=== PATIENT | female | born 1955 | race Caucasian/White ===

== ENCOUNTER → 2020-08-13 09:50 | Outpatient (CLI) | payer BC, SELFPAY ==
--- NOTE | ~2020-08-13 | CT_ITS ---
EXAMINATION: CT lung screening EXAM DATE: 08/13/2020 10:15 INDICATION: Personal history of nicotine dependence. TECHNIQUE: Spiral low dose CT of the chest without contrast. Axial, coronal and sagittal images were reviewed. The dose-length product (DLP) for this examination was 73.80 mGy-cm. The exposure was ta ilored according to patient size (auto mA exposure control), and iterative reconstruction (ASIR) was used as additional dose reduction technique. There is no prior study for comparison. FINDINGS: The lungs are clear. Tracheobronchial tree is patent. There is no mediastinal, hilar o r axillary lymphadenopathy. There are no pleural or pericardial effusions. There is no pneumothor ax. Heart normal in size. There is mild to moderate coronary arterial calcification, arterial scl erosis. Upper abdomen is unremarkable. There is thoracic spondylosis without osteoblastic or osteol ytic lesions identified. IMPRESSION: Lung-RADS category 1, negative (<1%chance of malignancy); recommend continued LDCT screen ing in 1 year. Reviewed, dictated and finalized at location A. IER AND WAITER/WAITRESS IMPRESSION: Lung-RADS category 1, negative (<1%chance of malignancy); recommend continued LDCT screening in 1 year.
== END ==
PROVIDERS: PCP Family Medicine; Visit Provider Physician Assistant
DX: Z87.891 Personal history of nicotine dependence (principal)
CPT/HCPCS: G0297

== ENCOUNTER → 2021-01-13 07:09 | Outpatient (CLI) | payer BC, MEDICARE, SELFPAY ==
[2021-01-14 17:42] LABS: SARS-CoV-2 RNA PCR Negative
== END ==
PROVIDERS: PCP Physician Assistant; Visit Provider Physician Assistant
DX: R68.89 Other general symptoms and signs (principal); Z20.822 Contact with and (suspected) exposure to COVID-19
CPT/HCPCS: C9803; U0003; U0005

== ENCOUNTER → 2021-01-18 06:44 | Outpatient (CLI) | payer BC, MEDICARE, SELFPAY ==
[2021-01-18 19:04] LABS: SARS-CoV-2 RNA PCR Negative
== END ==
PROVIDERS: PCP Physician Assistant; Visit Provider Physician Assistant
DX: R68.89 Other general symptoms and signs (principal); Z20.822 Contact with and (suspected) exposure to COVID-19
CPT/HCPCS: C9803; U0003; U0005

== ENCOUNTER → 2021-06-19 00:25 | Outpatient (CLI) | payer BC, SELFPAY ==
[2021-06-19 18:09] LABS: SARS-CoV-2 RNA PCR Negative
== END ==
PROVIDERS: PCP Family Medicine; Visit Provider Family Medicine
DX: Z20.822 Contact with and (suspected) exposure to COVID-19 (principal)
CPT/HCPCS: C9803; U0003; U0005

== ENCOUNTER → 2021-09-07 08:57 | Outpatient (CLI) | payer BC, SELFPAY ==
[2021-09-07 20:28] LABS: SARS-CoV-2 RNA PCR Negative
== END ==
PROVIDERS: PCP Family Medicine; Visit Provider Physician Assistant
DX: R68.89 Other general symptoms and signs (principal); Z20.822 Contact with and (suspected) exposure to COVID-19
CPT/HCPCS: C9803; U0003; U0005

== ENCOUNTER → 2021-11-19 12:20 | Outpatient (CLI) | payer BC, SELFPAY ==
--- NOTE | ~2021-11-19 | XR_ITS ---
XR lumbar spine min 4V DATE: 11/19/2021 12:46 INDICATION: Low back pain TECHNIQUE: AP, lateral, bilateral oblique views and coned lateral lumbosacral view COMPARISON: 08/16/2011 lumbar spine FINDINGS: There is diffuse osteopenia. There is approximately 24 degrees rotatory moderate levoscoliosis of the lower thoracic and lumbar sp ine measured from T12 to L4. There is prominent multilevel degenerative disc disease. There is associated retrolisthesis at L3-4. There is prominent degenerative change at the apophyseal joints particularly in the lower lumbar and lumbosacral area but no anterolisthesis. The sacroiliac joints are intact. IMPRESSION: Rotatory levoscoliosis of the lumbar spine Multilevel degenerative disc disease with associated retrolisthesis at L3-4 Degenerative change at the facet joints Osteopenia Reviewed, dictated and finalized at location B. CIATE PROFESSOR OF THEATRE
== END ==
PROVIDERS: PCP Physician Assistant; Visit Provider Physician Assistant
DX: M54.50 Low back pain, unspecified (principal); M41.86 Other forms of scoliosis, lumbar region; M51.36 Other intervertebral disc degeneration, lumbar region; M43.16 Spondylolisthesis, lumbar region; M85.88 Other specified disorders of bone density and structure, other site
CPT/HCPCS: 72110

== ENCOUNTER 2021-11-29 11:18 | Emergency (ER) | payer BC, SELFPAY ==
--- NOTE | ~2021-11-29 | CT_ITS ---
EXAMINATION: CT lumbar spine wo con DATE: 11/29/2021 13:04 INDICATION: Low back pain. TECHNIQUE: Computed tomography (CT) of the lumbar spine was performed without intravenous contrast. A utomated exposure control and iterative reconstruction technique were employed. The dose-length produ ct was 923.68 mGy-cm. COMPARISON: Lumbar spine radiographs 11/19/21 FINDINGS: There is 23 degrees levoscoliosis of thoracolumbar spine. There is 3 mm anterolisthesis of L4 on L5. There is mild chronic anterior wedging of L1 and L2 vertebral bodies. There is severely dec reased disc height at T12-L1, moderately decreased disc height at L1-L2, severely decreased disc heig ht at L2-L3, moderately decreased disc height at L3-L4, and severely decreased disc height at L4-L5 a nd L5-S1 with endplate remodeling. The following disc levels are specifically discussed: L1-L2: The disc does not extend beyond the endplate margin. There is mild bilateral facet joint osteo arthritis. There is no neural foraminal stenosis. There is no central canal stenosis. L2-L3: The disc is bulging. There is severe right and moderate left facet joint osteoarthritis. There is moderate right and mild left neural foraminal stenosis. There is mild central canal stenosis. L3-L4: The disc is bulging. There is severe bilateral facet joint osteoarthritis. There is mild bilat eral neural foraminal stenosis. There is mild central canal stenosis. L4-L5: The disc is bulging. There is severe bilateral facet joint osteoarthritis. There is mild right and moderate left neural foraminal stenosis. There is mild central canal stenosis. L5-S1: The disc is bulging. There is severe bilateral facet joint osteoarthritis. There is moderate b ilateral neural foraminal stenosis. There is mild central canal stenosis. IMPRESSION: 1. Severe lumbar spondylosis. 2. Thoracolumbar levoscoliosis. Reviewed, dictated and finalized at location A. ATIONS RESEARCH SCIENTIST
[2021-11-29 11:25] VITALS: BP 146/82; RESP 102; TEMP 36.6; O2SAT 100
--- NOTE | 2021-11-29 12:44 | ED.BACK ---
HPI - Back Pain/Injury General Chief Complaint: Back Pain/Injury Stated Complaint: back pain Time Seen by Provider: 11/29/21 12:27 History of Present Illness HPI Narrative: 66-year-old female presents to the emergency room with chronic back pain for 4 weeks. Patient states she has been evaluated by her PCP, was given an 8-day course of prednisone, and tramadol. Denies saddle anesthesia. Denies difficulties or loss of bowel or bladder habits. Related Data Home Medications Medication Instructions Recorded Confirmed ibuprofen 200 mg tablet 200 mg PO Q6H PRN 08/23/19 11/16/21 Allergies Allergy/AdvReac Type Severity Reaction Status Date / Time alprazolam Allergy Severe Stopped Verified 11/16/21 09:58 Breathing Review of Systems Review of Systems: CONSTITUTIONAL: Denies fever, chills, or sweats. EYES: Denies visual changes, redness, or discharge. ENT: Denies rhinorrhea, congestion, sore throat, or otalgia. CARDIOVASCULAR: Denies chest pain, palpitations, or edema. RESPIRATORY: Denies cough or dyspnea. GASTROINTESTINAL: Denies abdominal pain, nausea, vomiting, or diarrhea. GENITOURINARY: Denies dysuria or hematuria. SKIN: Denies rash or itching. MUSCULOSKELETAL: Reports back pain, joint pain, or myalgia. NEUROLOGIC: Denies headache, numbness, dizziness, or weakness. Denies radiculopathy or paresthesias PSYCHIATRIC: Denies anxiety or depression. [facility] Past Medical History Medical History (Updated 11/29/21 @ 14:00 by Nico Osborne APRN) Adenomatous colon polyp Hammertoe Hemorrhoids with prolapsed tissue that cannot be manually replaced Surgical History Surgical History H/O: hysterectomy History of bunionectomy Family History Family History Mother Diabetes mellitus Other Family history of coronary artery disease Family history of malignant neoplasm of breast in first degree relative Social History Social History Smoking status: Current every day smoker Alcohol intake: current Drinks per week: 1 Substance use: current Substance use type: marijuana Other substance usage details: smokes marijuana, edibles-seldom, maybe once every 2 weeks. Exam Narrative: GENERAL: Well-appearing, well-nourished. HEAD: Normocephalic, atraumatic. EYES: PERRLA and EOMI. ENT: Nares clear, no rhinorrhea or epistaxis. Mucous membranes moist. Oropharynx without tonsillar hypertrophy exudate or other lesions. Bilateral TMs pearly weems nonbulging NECK: Supple. No adenopathy or masses. No carotid bruits or JVD CHEST: Clear to auscultation. No respiratory distress. No wheezes rales or rhonchi HEART: Regular rate and rhythm. No murmur heard. Normal peripheral pulses. ABDOMEN: Soft, nontender, nondistended, normal active bowel sounds. EXTREMITIES: Normal range of motion. No edema. Lumbar spine: No tenderness to palpation, no midline tenderness, no step-offs. Negative leg raise SKIN: Warm, dry, no rash. NEURO: No focal deficits. Alert and oriented x3. PSYCH: Normal mood and affect. Course Course Emergency Course: Patient given 10 mg of IV Decadron 4 mg of Zofran and 4 mg of morphine for back pain. Patient's pain level went from a 10 out of 10 to a 4 out of 10. Vital Signs Vital signs: Vital Signs Temperature 36.6 C 11/29/21 11:25 Respiratory Rate 102 H 11/29/21 11:25 Blood Pressure 146/82 H 11/29/21 11:25 Pulse Oximetry 100 11/29/21 11:25 Temperature 36.6 C 11/29/21 11:25 Respiratory Rate 102 H 11/29/21 11:25 Blood Pressure 146/82 H 11/29/21 11:25 Pulse Oximetry 100 11/29/21 11:25 MDM - Back Pain/Injury MDM Narrative Medical decision making narrative: 66-year-old female presented to emergency room with 4 weeks of low back pain that radiates into her right buttock. States she had plain films performed of her l
[2021-11-29] MEDS: ONDANSETRON INJ 4 MG/2 ML VIAL IV PUSH (13:15)
[2021-11-29] MEDS: MORPHINE SULFATE (*CRX) 4 MG/ML INJ IV PUSH (13:15)
[2021-11-29 14:11] VITALS: BP 143/80; PULSE 88; RESP 16; TEMP 36.1; O2SAT 97
== END 2021-11-29 14:10 | disposition home or self-care (01) ==
PROVIDERS: Emergency Provider Nurse Practitioner Family; PCP Family Medicine
DX: M54.41 Lumbago with sciatica, right side (principal); Z86.010 Personal history of colon polyps; F17.200 Nicotine dependence, unspecified, uncomplicated; M47.816 Spondylosis without myelopathy or radiculopathy, lumbar region
CPT/HCPCS: 72131; 96374; 96375; 99284; J1100; J2270; J2405

== ENCOUNTER 2022-07-07 08:00 | Outpatient (NON) | payer BC, SELFPAY | END 2022-07-07 08:01 | disposition home or self-care (01) | LOC: ANHLAB 07-11 13:04 | PROVIDERS: PCP Family Medicine; Visit Provider Nurse Practitioner | DX: L57.0 Actinic keratosis (principal); L81.4 Other melanin hyperpigmentation | CPT/HCPCS: 88305; 88342 ==

== ENCOUNTER 2022-09-21 13:16 | Outpatient (NON) | payer BC, SELFPAY | END 2022-09-21 13:17 | disposition home or self-care (01) | LOC: ANHLAB 13:17 | PROVIDERS: PCP Family Medicine; Visit Provider Surgery Plastic and Reconstructive Surgery | DX: D49.2 Neoplasm of unspecified behavior of bone, soft tissue, and skin (principal) | CPT/HCPCS: 88305 ==

== ENCOUNTER 2023-03-01 08:13 | Emergency (ER) | payer OTHER, SELFPAY ==
--- NOTE | ~2023-03-01 | CT_ITS ---
EXAMINATION: CT lumbar spine wo con DATE: 03/01/2023 09:50 INDICATION: Sacral pain. TECHNIQUE: Computed tomography (CT) of the lumbar spine was performed without intravenous contrast. A utomated exposure control and iterative reconstruction technique were employed. The dose-length produ ct was 577.74 mGy-cm. 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 The inferior aspect of the sacrum is excluded. There is mild osteoarthritis of the sacroiliac joints. There is 25 degrees levoscoliosi s of lumbar spine. There is a chronic compression fracture of L2 with 1/5 loss of height. There is 3 mm anterolisthesis of L4 on L5. There is moderately decreased disc height at L1-L2, severely decrease d disc height at L2-L3, mildly decreased disc height at L3-L4, severely decreased disc height at L4-L 5 and L5-S1. The following disc levels are specifically discussed: L1-L2: The disc is bulging. There is mild bilateral facet joint osteoarthritis. There is mild bilater al neural foraminal stenosis. There is mild central canal stenosis. L2-L3: The disc is bulging. There is severe right and moderate left facet joint osteoarthritis. There is moderate right and mild left neural foraminal stenosis. There is mild central canal stenosis. L3-L4: The disc is bulging. There is severe bilateral facet joint osteoarthritis. There is mild bilat eral neural foraminal stenosis. There is mild central canal stenosis. L4-L5: The disc is bulging. There is severe bilateral facet joint osteoarthritis. There is mild bilat eral neural foraminal stenosis. There is mild central canal stenosis. L5-S1: The disc is bulging. There is severe bilateral facet joint osteoarthritis. There is mild bilat eral neural foraminal stenosis. There is mild central canal stenosis. IMPRESSION: 1. Severe lumbar spondylosis. 2. Lumbar levoscoliosis. 3. Mild osteoarthritis of the sacroiliac joints. 4. The inferior aspect of the sacrum is excluded. Reviewed, dictated and finalized at location A.
--- NOTE | ~2023-03-01 | XR_ITS ---
EXAMINATION: XR hip RT min 2V DATE: 03/01/2023 09:55 INDICATION: Lateral right hip pain TECHNIQUE: Anteroposterior and frog-leg lateral views of the right hip were obtained. COMPARISON: None. FINDINGS: Alignment is normal. No fracture or suspected avascular necrosis. Right hip osteoarthritis with mild to moderate superomedial predominant nonuniform joint space narrowing. Mild osteoarthritis at the rig ht sacroiliac joint. Couple phleboliths in the pelvis. IMPRESSION: 1. Mild to moderate right hip osteoarthritis. Reviewed, dictated and finalized at location B.
[2023-03-01 08:17] VITALS: BP 144/86; PULSE 82; RESP 16; TEMP 36.2; O2SAT 97
--- NOTE | 2023-03-01 09:35 | ED.EXTPRO ---
HPI - Extremity Problem General Chief complaint: Extremity Problem,Nontraumatic Stated complaint: right hip pain Time Seen by Provider: 03/01/23 08:54 Source: patient Mode of arrival: ambulatory Limitations: no limitations History of Present Illness HPI Narrative: This is a 67-year-old female who presents to the ED with chief complaint of acute on chronic right hip pain. Patient states that it has been more bothersome in the last 3 days and she wants to have the pain under control by Monday. She states she has not been able to get into her pain management clinic until next week. She reports right lateral hip pain and SI joint pain. Also endorses a little bit of sacral pain. Denies radiculopathy. Denies fevers, chills, numbness, weakness, saddle anesthesia, urinary or bowel dysfunction. Related Data Allergies Allergy/AdvReac Type Severity Reaction Status Date / Time alprazolam Allergy Severe Stopped Verified 03/01/23 08:24 Breathing Review of Systems Review of Systems: CONSTITUTIONAL: Denies fever, chills, or sweats. EYES: Denies visual changes, redness, or discharge. ENT: Denies rhinorrhea, congestion, sore throat, or otalgia. CARDIOVASCULAR: Denies chest pain, palpitations, or edema. RESPIRATORY: Denies cough or dyspnea. GASTROINTESTINAL: Denies abdominal pain, nausea, vomiting, or diarrhea. GENITOURINARY: Denies dysuria or hematuria. SKIN: Denies rash or itching. MUSCULOSKELETAL: See HPI NEUROLOGIC: Denies headache, numbness, dizziness, or weakness. PSYCHIATRIC: Denies anxiety or depression. [facility] Past Medical History Medical History (Updated 03/01/23 @ 10:29 by Juanito Dennis PA-C) Adenomatous colon polyp Hammertoe Hemorrhoids with prolapsed tissue that cannot be manually replaced Surgical History Surgical History H/O: hysterectomy History of bunionectomy Family History Family History Mother Diabetes mellitus Other Family history of coronary artery disease Family history of malignant neoplasm of breast in first degree relative Social History Social History (Updated 09/06/22 @ 09:00 by Mel العراقي CMA) Smoking status: Current every day smoker Tobacco type: cigarettes Second hand tobacco smoke exposure: No Alcohol intake: current Drinks per week: 1 Substance use: current Substance use type: marijuana Other substance usage details: smokes marijuana, edibles-seldom, maybe once every 2 weeks. Lack of Transportation: No Lack of Food: Never True Current Housing: I Have Housing Concerned About Future Housing: No Difficulty Paying Gas/Electric Bills: No Difficulty Paying for Meds: No Currently Unemployed: No Education: Trade/Vocational Certificate Difficulty w/ Childcare or Family Care: No Living arrangements: with family Gender identity (if verbalized by the patient): Female Sexual Orientation (if Verbalized by the Patient): Straight or Heterosexual Spiritual care concerns: No Agree to blood products: Yes Exam Narrative: GENERAL: Well-appearing, well-nourished, and in no acute distress. HEAD: Normocephalic, atraumatic. EYES: PERRLA and EOMI. ENT: Nares clear, no rhinorrhea or epistaxis. Mucous membranes moist. Oropharynx without tonsillar hypertrophy exudate or other lesions. NECK: Supple. No adenopathy or masses. CHEST: No respiratory distress. Clear to auscultation. No wheezes rales or rhonchi HEART: Regular rate and rhythm. No murmur heard. Normal peripheral pulses. ABDOMEN: Soft, nontender, nondistended, normal active bowel sounds. MSK: Right hip: Full active and passive range of motion of the right hip. Mild lateral tenderness and right SI joint tenderness is present. Negative logroll. Left hip: Benign. L-spine: Mild right sacral tenderness. MSK exam is otherwise benign. She is ambulatory. Normal range of motion. N
[2023-03-01] MEDS: KETOROLAC 30 MG/ML VIAL (*BKC) IM (09:40)
[2023-03-01 10:42] VITALS: BP 138/71; PULSE 72; RESP 16; O2SAT 97
== END 2023-03-01 10:42 | disposition home or self-care (01) ==
PROVIDERS: Emergency Provider Physician Assistant; PCP Family Medicine
DX: M25.551 Pain in right hip (principal); G89.29 Other chronic pain; M47.816 Spondylosis without myelopathy or radiculopathy, lumbar region; M16.11 Unilateral primary osteoarthritis, right hip; F17.210 Nicotine dependence, cigarettes, uncomplicated; Z86.010 Personal history of colon polyps; Z90.710 Acquired absence of both cervix and uterus; M46.1 Sacroiliitis, not elsewhere classified
CPT/HCPCS: 72131; 73502; 96372; 99284; J1885

== ENCOUNTER 2023-07-31 12:59 | Outpatient (NON) | payer OTHER, SELFPAY | END 2023-07-31 13:00 | disposition home or self-care (01) | LOC: ANHLAB 08-02 13:02 | PROVIDERS: PCP Family Medicine; Visit Provider Nurse Practitioner | DX: C44.311 Basal cell carcinoma of skin of nose (principal) | CPT/HCPCS: 88305 ==

== ENCOUNTER 2023-09-11 15:09 | Outpatient (NON) | payer OTHER, SELFPAY | END 2023-09-11 15:10 | disposition home or self-care (01) | LOC: ANHLAB 15:09 | PROVIDERS: PCP Family Medicine; Visit Provider Nurse Practitioner | DX: C44.311 Basal cell carcinoma of skin of nose (principal) | CPT/HCPCS: 88305; 88331 ==

== ENCOUNTER 2024-04-17 06:35 | Outpatient (CLI) | payer OTHER, SELFPAY ==
--- NOTE | ~2024-04-17 | MR_ITS ---
MRI of the lumbar spine Clinical History: Back pain Technique: Axial T2-weighted images, and sagittal T1-weighted, T2-weighted, and T2 fat-sat images wer e acquired. Findings: There is no fracture or subluxation of the lumbar spine. There is levoscoliosis. No suspici ous bone marrow signal abnormality seen. There is a 1 Modic changes about the L1-L2 and L2-L3 disc sp aces. At L1-L2, there is severe degenerative narrowing. There is mild diffuse disc bulge and moderate facet arthropathy. No central canal stenosis. There is moderate right neural foraminal narrowing. Left karolina ral foramen preserved. At L2-L3, there is severe degenerative disc narrowing. There is mild diffuse disc bulge with moderate facet arthropathy. No central canal stenosis. There is probable mild right neural foraminal narrowin g. Left neural foramen preserved. At L3-L4, there is moderate degenerative disc narrowing. There is diffuse disc bulge with severe face t arthropathy. There is mild central canal stenosis. There is mild to moderate right neural foraminal narrowing and minimal left neural foraminal narrowing. At L4-L5, there is mild degenerative disc disease. There is diffuse disc bulge with severe facet arth ropathy, resulting in moderate spinal canal stenosis/thecal sac compression. There is moderate to adv anced left neural foraminal narrowing. Right neural foramen preserved. At L5-S1, there is mild disc bulge and moderate facet arthropathy. No central canal stenosis. There i s moderate right neural foraminal narrowing, and moderate to severe left neural foraminal narrowing. Paravertebral soft tissues are unremarkable. Impression: Moderate to advanced degenerative spondylosis, as detailed above, with underlying levoscoliosis. Reviewed, dictated and finalized at [facility] M. Impression: Moderate to advanced degenerative spondylosis, as detailed above, with underlyi ng levoscoliosis.
== END 2024-04-17 06:36 | disposition home or self-care (01) ==
PROVIDERS: PCP Family Medicine; Visit Provider Nurse Practitioner Family
DX: M47.896 Other spondylosis, lumbar region (principal)
CPT/HCPCS: 72148

== ENCOUNTER 2024-04-25 12:45 | Outpatient (CLI) | payer OTHER, SELFPAY ==
--- NOTE | 2024-04-25 12:53 | ECG_ITS ---
Test Date: 2024-04-25 13:01:08 Measurements Intervals [place] Rate: 77 P: 49 FL: 163 QRS: -23 QRSD: 97 T: 40 QT: 389 QTc: 443 Interpretive Statements SINUS RHYTHM DELAYED PRECORDIAL R/S TRANSITION CONSIDER INFERIOR INFARCT, AGE INDETERMINATE BASELINE ARTIFACT- II, III, AVR, AVL, AVF ABNORMAL ECG No previous ECG available for comparison Electronically Signed On 04-25-2024 13:15:00 CDT by True Villarreal D.O.
== END 2024-04-25 12:46 | disposition home or self-care (01) ==
LOC: ANHSURGERY 12:51
PROVIDERS: PCP Family Medicine; Visit Provider Surgery
DX: E78.2 Mixed hyperlipidemia (principal); Z01.818 Encounter for other preprocedural examination; R94.31 Abnormal electrocardiogram [ECG] [EKG]
CPT/HCPCS: 93005

== ENCOUNTER 2024-04-29 01:10 | Day surgery (SDC) | payer OTHER, SELFPAY ==
[2024-04-25 08:15] VITALS: BMI 25.0
--- NOTE | 2024-04-25 08:48 | PC.NURSE ---
Report to the Outpatient Waiting Room, entrance under the green pavilion located off [facility], at time ___11:00AM____ on date ___04/29/24____. Planned Procedure Time: __1:00PM . Time changes happen often and if your time is changed the preop area will call you the afternoon before. - You and your visitor will be asked to self-screen and do not enter if you have any COVID symptoms. - A mask is optional within the hospital at this time. Patients may have clear liquids (water, carbonated beverages, clear teas, apple juice) until 3 hours prior to surgery with a maximum of 20 ounces. - No food from midnight until time of surgery. Take the following medications with a SIP of water the morning of surgery: ___NONE DO NOT STOP ANY OF YOUR OTHER PRESCRIPTION MEDICATIONS PRIOR TO SURGERY ?EXCEPT THE FOLLOWING Medications to discontinue per physician NONE Date to take last dose Please no make-up, nail bulgarian, hairspray, perfume, deodorant, or body powder the day of surgery. No jewelry (including any body piercings) or valuables the day of surgery, leave them at home. Please take a shower or bath the night before, or the morning of, surgery with an antibacterial soap. Wear comfortable, loose fitting clothing. - Jewelry must be removed prior to entering the operating room. Rings and piercings that are not removed may be cut off. - The hospital will not accept responsibility for valuables. - Please leave all valuables, including medications, at home the day of surgery. If you are going home after surgery, a licensed regional driver must drive you home. - NO public transportation without another adult if you receive anesthesia. - We recommend that an adult stay with you for 24 hours following discharge. - We also recommend that you do not drive, make important decision, drink alcoholic beverages, or take any drugs that were not prescribed by your health care provider for at least 24 hours after your discharge time. Follow any additional instructions given to you from your surgeon. If you or anyone in your household have experienced Covid symptoms in the past week, please notify your surgeon or the nurse liaison at the phone number below for possible testing. Telephone instructions given to ___PATIENT and asked if any additional questions and then verbalized understanding. Patient advised to call surgeon office or pre surgery nurse liaison [phone] if any additional questions.
[2024-04-29] VITALS (8 sets, daily range): BP systolic 122–167; BP diastolic 76–89; PULSE 69–92; RESP 11–16; TEMP 36.3–36.8; O2SAT 97–100
[2024-04-29] MEDS: ACETAMINOPHEN 500 MG TABLET 1000 MG PO (11:22)
[2024-04-29] MEDS: KETOROLAC 15 MG/ML VIAL (*BKC) IV PUSH ×2 (11:29→15:17)
--- NOTE | 2024-04-29 11:50 | WPDANESEPPF ---
Anes - Initial Pre Proc Eval Procedure: Operation Date: 04/29/24 13:00 Proposed Procedures p Internal and External Hemorrhoidectomy Times Two Columns - Karl Stewart DO Date/Time: 04/29/24 11:50 Surgeon: Karl Stewart DO Pre Op Diagnosis: Internal & External Bleeding Hemorrhoid Patient Data Age: 68 Gender: F Height: 1.55 m Weight: 58.8 kg Last Vital Signs Temp 98.3 F 04/29/24 11:00 Pulse 92 04/29/24 11:00 Resp 16 04/29/24 11:00 BP 122/81 04/29/24 11:00 Pulse Ox 98 04/29/24 11:00 O2 Del Method Room Air 04/29/24 11:00 Allergies Allergy/AdvReac Type Severity Reaction Status Date / Time alprazolam AdvReac Intermediate shortness Verified 04/29/24 11:20 of breath Home Medications Medication Instructions Recorded Confirmed Type atorvastatin 10 mg tablet See Rx Instructions .Route 06/15/23 04/29/24 Rx .COMPLEX #90 tabs naproxen 500 mg tablet 500 mg PO BID PRN pain #60 tabs 08/09/23 04/25/24 Rx valacyclovir 1 gram tablet 2,000 mg PO Q12H PRN cold sores 08/11/23 04/25/24 Rx (Valtrex) #30 tabs varenicline 0.5 mg (11)-1 mg (42) See Rx Instructions PO PER PKG DIR 01/31/24 04/25/24 Rx tablets in a dose pack #53 ea ondansetron HCl 4 mg tablet 4 mg PO Q8H PRN nausea and 04/17/24 04/25/24 Rx vomiting #30 tabs Patient hx anesthesia problems: none Family hx anesthesia problems: none Results Review: All pre-operative results and documents have been reviewed as part of the pre-operative evaluation. [facility] Past Medical History Medical History (Updated 04/08/24 @ 15:02 by Mariluz Harris) Adenomatous colon polyp Hammertoe Hemorrhoids with prolapsed tissue that cannot be manually replaced Surgical History Surgical History H/O: hysterectomy History of bunionectomy Family History Family History Mother Diabetes mellitus Other Family history of coronary artery disease Family history of malignant neoplasm of breast in first degree relative Social History Social History Smoking packs per day: 1 Smoking cigarettes per day: 20.0 Years smoked: 50 Smoking pack-years: 50.00 Smoking status: Current every day smoker Tobacco type: cigarettes Second hand tobacco smoke exposure: No Additional smoking assessment comments: TRYING TO QUIT-SMOKING 4-5/DAY Alcohol intake: current Drinks per week: 8 Alcohol use details: 3 beers, twice weekly Substance use: current Substance use type: marijuana Other substance usage details: smokes marijuana, edibles-seldom, maybe once every 2 weeks. Lack of Transportation: No Lack of Food: Never True Current Housing: I Have Housing Concerned About Future Housing: No Difficulty Paying Gas/Electric Bills: No Difficulty Paying for Meds: No Currently Unemployed: No Education: Trade/Vocational Certificate Difficulty w/ Childcare or Family Care: No Living arrangements: with family Additional living arrangements comments: HUSB Gender identity (if verbalized by the patient): Female Sexual Orientation (if Verbalized by the Patient): Straight or Heterosexual Spiritual care concerns: No Agree to blood products: Yes Anes - Eval Final PreProcedure Day of Procedure 04/29/24 11:50 Patient weight: normal Heart: regular rate and rhythm Lungs: clear to auscultation Airway: Mallampati scale class II Neurological: alert and oriented Last oral intake: >/= 8 hours ASA classification: III Emergent: no Anesthetic plan: proceed Anesthesia type and monitoring: general ETT and standard monitoring Results Review: All pre-operative results and documents have been reviewed as part of the pre-operative evaluation. Informed Consent: The patient's anesthetic plan and its attendant risks and benefits were discussed with the shayy
[2024-04-29] MEDS: LACTATED RINGERS 1,000 ML 30 ML IV CONT ×2 (12:02→15:21)
--- NOTE | 2024-04-29 13:38 | WPDHPUPDATE1 ---
History and Physical Update Update Date/Time: 04/29/24 13:38 History and Physical has been reviewed, including an updated exam of the patient. There are NO changes in the patient's condition. Risks, benefits, and alternatives have been discussed and questions answered. Patient agrees to proceed with procedure.
[2024-04-29] MEDS: ceFAZolin 2 GM/D5W 50 ML 2 GM/50 ML BAG IVPB (14:02)
[2024-04-29] MEDS: BUPivacaine HCL 0.5% PF 30 ML VIAL INFILTRATE (14:25)
--- NOTE | 2024-04-29 15:02 | W.PM.PROC2 ---
Procedure Note - Detailed Date of Procedure 04/29/24 Pre-op Diagnosis Internal & External Bleeding Hemorrhoid Post-op Diagnosis Same Procedure Performed Internal and external hemorrhoidectomy x2 columns Surgeon Karl Stewart, DO Anesthesia General and Local (0.5% bupivacaine with epinephrine) Indications This is a 68-year-old woman who presented with prolapsing and bleeding internal and external hemorrhoids. She had tried infrared coagulation in the past without much benefit. Discussions were made with the patient about lifestyle and diet modifications to help with symptoms as well as less invasive procedures such as hemorrhoid banding verses more invasive procedures such as excision. Patient chose to proceed with excision. I recommended internal and external hemorrhoidectomy x2 columns. Findings Rectal exam under anesthesia was performed and patient was found to have external hemorrhoid tissue along with prolapsing internal hemorrhoid tissue predominantly in the right anterior and right posterior locations. The left side did not appear to have any major issues with internal or external hemorrhoids, therefore the left side was left wound. Internal and external hemorrhoidectomy was performed in the right anterior right posterior locations. The specimens were sent to the lab for pathology. Description of Procedure Procedure as well as risks, benefits, and alternatives were discussed with the patient. Written consent was obtained and placed in chart prior to procedure. Patient was brought back to surgical suite. She was placed supine on his hospital stretcher. Time-out was done to confirm patient and procedure. She was then intubated by the Anesthesia Department. She was then repositioned into prone narayan-knife position. Her perirectal area was prepped and draped in sterile fashion using Betadine prep. Digital rectal exam was initially performed. A Hill-Grigsby anoscope was then inserted and the anal rectal canal was inspected. 0.5% bupivacaine with epinephrine was infiltrated locally around the perianal skin. Hemorrhoids were identified in the right anterior and right posterior positions. A Fansler anoscope was then inserted. The apex of the internal hemorrhoid bundle in the right posterior location was ligated initially using a 2 0 chromic oicyow-rw-tcohg suture. A triangular incision was then made on the anoderm including the external hemorrhoid using a 15 blade scalpel. The hemorrhoid tissue was carefully lifted free from the sphincter muscle using sharp dissection with a 15 blade scalpel. Electrocautery was then used for hemostasis. A curved Peon clamp was then placed across the hemorrhoid bundle and the hemorrhoid tissue was cut away using Metzenbaum scissors. The 2 0 chromic suture was then run across the rectal mucosa down to the anal verge across the clamp. The suture was then run back proximally to the apex stitch with running locking sutures and the stitch was then tied down in place. The area was then irrigated with sterile saline, and hemostasis along the anoderm was achieved with electrocautery. The anoderm was then reapproximated using 3 0 chromic simple interrupted sutures. I then repositioned the anoscope to the right anterior location. The apex of the internal hemorrhoid bundle in the right anterior location was ligated initially using a 2 0 chromic guxsaw-bv-eeluo suture. A triangular incision was then made on the anoderm including the external hemorrhoid using a 15 blade scalpel. The hemorrhoid tissue was carefully lifted free from the sphincter muscle using sharp dissection with a 15 blade scalpel. Electrocautery was then used for hemostasis. A curved Peon clamp was then placed across the hemorrhoid bundle and the hemorrhoid tissue was cut away using Metzenbaum scissors. The 2 0 chromic suture was then run across the rectal mucosa down to the anal verge across the clamp. The suture was then run back proximally to the
== END 2024-04-29 17:10 | disposition home or self-care (01) ==
PROVIDERS: PCP Family Medicine; Visit Provider Surgery
PROC: (CPT 46260; principal; 2024-04-29 13:00)
DX: K64.4 Residual hemorrhoidal skin tags (principal); K64.8 Other hemorrhoids; F17.290 Nicotine dependence, other tobacco product, uncomplicated; F12.90 Cannabis use, unspecified, uncomplicated; Z98.890 Other specified postprocedural states; Z86.010 Personal history of colon polyps; Z80.3 Family history of malignant neoplasm of breast; Z82.49 Family history of ischemic heart disease and other diseases of the circulatory system
CPT/HCPCS: 46260; 88304; 93005; A9270; J0690; J1100; J1885; J2250; J2405; J2704; J3010; J7120

== ENCOUNTER 2024-05-27 12:26 | Outpatient (CLI) | payer OTHER, SELFPAY ==
--- NOTE | ~2024-05-27 | DEXA_ITS ---
Bone Density Report Name: VANI BRITT Age: 68 Sex: Female Ethnicity: White Date of : 1955 Indication: postmenopausal; screening for osteoporosis; height loss; hysterectomy; Referring Provider: Zahraa Ladd Study: Bone densitometry was performed. Exam Date: May 27, 2024 Accession number: [id number] Bone Density: Region BMD T-score Z-score Classification AP Spine(L1-L4) 0.878 -1.5 0.5 Osteopenia Femoral Neck (Left) 0.529 -2.9 -1.2 Osteoporosis Total Hip (Left) 0.662 -2.3 -0.9 Osteopenia Femoral Neck (Right) 0.497 -3.2 -1.5 Osteoporosis Total Hip (Right) 0.694 -2.0 -0.6 Osteopenia Femoral Neck Mean 0.513 -3.0 -1.3 Osteoporosis Total Hip Mean 0.678 -2.2 -0.7 Osteopenia World Health Organization criteria for BMD impression classify patients as: Normal (T-score at or above -1.0), Osteopenia (T-score between -1.0 and -2.5), or Osteoporosis (T-score at or below -2.5). 10-year Fracture Risk: FRAX not reported because: Some T-score for Spine Total or Hip Total or Femoral Neck at or below -2.5 Clinical Information Provided by Patient: Smokes Has the following medical conditions: Hysterectomy Patient maximum height was 62 Menopause Age: 50 Drinks caffeinated beverages Onset of menses at age 12 Number of children 2 Impression: The patient has osteoporosis, based on the Right Femoral Neck T-score. The patient has risk factors, including: smoking. Discussion: INCREASED RISK OF FRACTURE. BONE DENSITY IS UNDESIRABLY LOW AT ONE OR MORE SKELETAL SITES, CONSISTENT WITH POSTMENOPAUSAL OSTEOPOROSIS. This patient's lowest T-score meets the World Health Organization's (WHO) criteria for osteoporosis at one or more sites (T-score -2.5 or below). In untreated patients, the risk of osteoporotic fracture increases approximately two-fold for each 1.0 SD decrease in T-score. Low bone density is not the only risk factor for fracture; also consider factors such as patient's age, frailty or poor health, risk of falling, risk of injury, previous osteoporotic fracture, family history of osteoporosis, cigarette smoking, low body weight, etc. Not everyone with low bone mineral density has osteoporosis; osteomalacia and other metabolic bone disorders should also be considered. Patients who have osteoporosis should be evaluated for specific diseases and conditions (secondary causes) that may cause or contribute to bone loss. The [place] Association of Clinical Endocrinologists (AACE) and National Osteoporosis Foundation (NOF) recommend pharmacologic intervention for all postmenopausal women whose T-score is in this range. The patient should follow a healthful lifestyle (good nutrition with adequate calcium and vitamin D, and appropriate weight-bearing exercise). Follow-Up: Consider a repeat BMD
--- NOTE | ~2024-05-27 | MM_ITS ---
EXAMINATION: MM screening rupali BI w angelic HISTORY: Screening TECHNIQUE: Craniocaudal and mediolateral oblique 3-D tomosynthesis images were obtained and synthetic 2-D images were generated. CAD analysis was submitted and interpreted. COMPARISON: 05/20/2009 BREAST PARENCHYMAL COMPOSITION: Not dense: There are scattered areas of fibroglandular density. FINDINGS: There is no evidence of suspicious mass, calcification, or architectural distortion to sugg est malignancy in either breast. There has been no suspicious interval change. IMPRESSION: 1. No mammographic evidence of malignancy. 2. Recommend routine screening mammography in one year. BI-RADS Category 1: Negative Reviewed, dictated and finalized at location B.
== END 2024-05-27 12:27 | disposition home or self-care (01) ==
LOC: CHSIMG 12:27
PROVIDERS: PCP Family Medicine; Visit Provider Family Medicine
DX: Z12.31 Encounter for screening mammogram for malignant neoplasm of breast (principal); Z78.0 Asymptomatic menopausal state; M85.89 Other specified disorders of bone density and structure, multiple sites; M81.0 Age-related osteoporosis without current pathological fracture
CPT/HCPCS: 77063; 77067; 77080

== ENCOUNTER 2025-04-14 08:47 | Outpatient (CLI) | payer OTHER, SELFPAY ==
--- OUTSIDE RECORDS SUMMARY | 2025-04-14 08:54 | XMS_ITS | Clinical Summary ---
Author Organization [facility] Address [address] [place] [id number] Care Team Providers Care Surveyor [employer] D[employer] Name Role Phone None, Provider MD Primary Care Provider Unavaila ble Social History Tobacco Use Types Packs/Day Years Used Date Smoking Tobacco: Never Assessed Comments Unknown Sex and Gender Information Value Date Recorded Sex Assigned at Not on file Legal Sex Female 10:18 AM CDT Gender Identity Not on file Sexual Orientation Not on file Plan of Treatment Health Maintenance Due Date Last Done Comments Colorectal Cancer Screening Colonoscopy (10 Years) 1955 Hepatitis C 1973 Mammogram Screening 1995 Pneumococcal Vaccine: 50+ Years (1 of 1 - PCV) 2005 Zoster Vaccines (1 of 2) 2005 DTaP, Tdap and Td Vaccines ( 2 - Td or Tdap) 03/13/2018 03/13/2008, 12/22/1997 Dexa Scan (General) 2020 COVID-19 Vaccine (4 - 2023-2 5 season) 2024 08/27/2021, 01/18/2021, 12/28/2020 RSV Immunization or 60+ Years (1 - 1-dose 75+ series) 2030 Meningococcal B Vaccine Aged Out No l onger eligible based on patient's age to complete this topic Meningococcal Vaccine Aged Out No jyoti jennifer eligible based on patient's age to complete this topic RSV Immunizations Under 20 Months Aged Out No longer eligible b ased on patient's age to complete this topic Insurance [facility] Care Teams Surveyor [employer] Directional Relationship Specialty Start Date End Date None, Provider, PCP - General 12/14/21
--- OUTSIDE RECORDS SUMMARY | 2025-04-14 08:54 | XMS_ITS | Data Portability ---
Author Organization [place] [facility], Main Office Address [address] [place] [address] Care Team Providers Care Diabetes Nurse Name Role Phone CARLOS OLSON Primary Care Provider [phone] CARLOS OLSON Referring Provider Assessment Encounter Date Assessment Date Assessment LastModified by Organization Details LastModified Time 03/17/2023 03/17/2023 impression: Patient has right-sided lower back pain into the buttock does have some trochanteric bursa tenderness but is not complaining of trochanteric pain. I believe this is coming from her lower back primarily possibly the sacroiliac joint. She is scheduled to return to a [facility] next week and may be getting a cortisone shot into the SI joint. I have recommended a course of physical therapy for back and sacroiliac joint stabilization exercises and she would like to pursue that. With respect to her right hip, it seems to be asymptomatic at this time so observation is appropriate. She may begin to wean off of the naproxen as her comfort allows. I will be happy to see her back if anything changes. 30 minutes were spent in total care this patient more than half the time spent in [id number] care. [email or web address] Not available 04/01/2023 19:42:02 Plan of Treatment Reminders Order Date Submit Date Provider Last Modified By Organization Details Last Modified Time Details Appointments None recorded. Lab None recorded. Referral physical therapist referral 2022 023 [email or web address] Not available 09:31:43 Procedures None recorded. Surgeries None recorded. Imaging None recorded. Medication Orders None recorded. Patient TargetsNo targets recorded. Patient InstructionsNo instructions recorded. Reason for Referral Physical Therapist Referral for Low back pain Referring Physician: Henrry Andres, Orthopedic Surgery, Encounter Date: 03/17/2023 Results Created Date Observation Date Name Description Value Unit Range Abnormal Flag Note LastModifiedBy Organization Detail LastModifiedTime 03/17/20 23 03/01/2023 XR, hip, unila teral No observ ation record ed. [email or web address] Not Available 2022 16:39:37 Result Notes None recorded. Problems Name Problem SNOMED Code Status Onset Date Resolution Date Notes Provider Name and Address Organization Details Recorded Time Pain of right hip joint 044743716515091 Active 2022 PINEDA Mcclain null, [facility] 3 11:12:32 Low back pain 127951762 Active 2022 Rhea Александр, VARNISH FINISHER null, [facility] 3 12:36:06 Problem Notes None recorded. Procedures Surgical History Date Name Laterality Status Provider Name and Address Organization Details Recorded Time hysterectomy completed PINEDA Mcclain [facility] 03/17/2023 11:11:25 Hand completed PINEDA Mcclain [facility] 03/17/2023 11:11:47 Imaging Results None recorded. Procedure Notes None recorded. Medical Equipment None Reported. Allergies Allergen ID Allergen Name Allergen Category Reaction Reaction Severity Criticality Documentation Date Start Date Code Code System Note Provider Name and Address Organization Details Recorded Time 79678 Xanax medicatio n Not available Not available Not available 03/17/2023 3 RxNorm PINEDA Mcclain null, [facility] 3 11:09:18 Medications Name Sig Start Date Stop Date Status Note LastModified by Organization Details LastModified Time amoxicillin 500 mg capsule 03/17 completed Not Available Not Available Not Available bupropion HCl SR 150 mg tablet,12 hr sustained-re lease TAKE 1 TABLET BY MOUTH TWICE DAILY 03/17 completed Not Available Not Available Not Available atorvastatin 10 mg tablet TAKE 1 TABLET BY MOUTH EVERY DAY active Not Available Not Available No t Available valacyclovir 1 gram tablet TAKE 2 TABLETS BY MOUTH EVERY 12 HOURS NEEDED FOR COLD SORES 03/17 completed Not Available Not Available Not Available tramadol 50 mg tablet TAKE 1 TABLET BY MOUTH EVERY 6 HOURS NEEDED FOR PAIN 03/17 completed Not Available Not Available Not Available terbinafine HCl 250 mg tablet TAKE 1 TABLET BY MOUTH DAILY 03/17 completed Not Available Not Available Not Available methylpredni solone 4 mg tablets in a dose pack TAKE 1 TABLET BY MOUTH DAILY 03/17 completed Not Available Not Available Not Available naproxen 500 mg tablet TAKE 1 TABLET BY MOUTH TWICE A DAY NEEDED FOR PAIN 03/17 completed Not Available Not Available Not Available diazepam 5 mg tablet active Not Available Not Available No t Available Vitals Date Recorded Body height Body mass index (BMI) Body weight Provider Name and Address Organization Details Last Updated DateTime 03/17/2023 152.4 cm 26.2 kg/m2 71007.38 g PINEDA Mcclain [employer] [facility] 03/17/2023 12:01:24 Social History Question Answer Notes LastModified by Organizat ion Details LastModified Time Tobacco Smoking Status Current Every Day Smoker PINEDA Mcclain [employer] [facility] 03/17/2023 11:11:13 How Much Tobacco Do You Smoke? 0.5 PPD [email or web address] Information not available 03/17/2023 Sex: Unknown Functional Status None recorded. Mental Status None recorded. Family History Relationship Description Onset Age of this Age Resolved Age Notes LastModified by Organization Details LastModified Time Father Heart disease [email or web address] Not available 2022 11:10:15 Mother Heart disease Not available 2022 11:10:15 Mother Family history of malignant neoplasm Not available 2022 11:10:24 Mother Diabetes mellitus Not available 2022 11:10:35 Medical History Condition Response ARTHRITIS Y CANCER: SPECIFY Y Gynecological HistoryNo gynecological history recorded. Obstetrics History GPAL:G 0 P 0 0 0 0 Past Encounters Encounter ID Performer Location Encounter Start Date Encounter Closed Date Diagnosis/Indication Diagnosis SNOMED-CT Code Diagnosis ICD10 Code Diagnosis Note [id number] Henrry Andres MD [facility] [address] [place] [id number] 03/17/2023 10:32:27 04/03/2023 09:31:43 Pain of right hip joint 7805725361 19461 M25.551 Low back pain 627936361 M54.50 Health Concerns Section Related Observation LastModified by Organization Detai ls LastModified Time None Recorded Concern Status LastModified by Organization Details LastModified Time None Recorded Advance Directives Directive None Recorded Payers Insurance Date Sequence Insurance Name Policy Number Policy Beltre Covered Member ID Beltre Member ID Guarantor Name 04/03/2023 1 [facility] (MEDICARE REPLACEMENT HMO) [id number] Alanis Phillip [id number] Alanis Kenji 03/14/2023 1 [place] Alanis Phillip [id number] Alaniskristian Phillip Notes Date Note Type Note Provider Name and Address Organization Details Recorded Time 03/17/2023 text/html patient is a 67-year-old female referred by Dr. Olson for evaluation of her right hip. She 1st noticed pain on 02/25/2023. Both sides hurt but the right was more. Her pain was in the lower back buttock inside of her hip primarily. Pain was worst sitting. She has not had any numbness or tingling no limping. She had no limitation in how far she can walk. She notes that this morning she felt a pop in her buttock when she was getting into the shower but did not change her symptoms. She went to the emergency room on 03/01/2023 and had x-rays of the right hip two views which demonstrate narrowing of the superomedial joint space to about 1.5 mm. No significant osteophyte formation or subchondral cyst formation. The femoral head remains quite round. The radiologist called this mild to moderate right hip osteoarthritis. A joint space narrowing superomedially would be more moderately severe. No bony destructive lesion noted. She noted that when her pain started pain was in the central buttock 3 weeks ago and this was the same area where she had pain last year and at that time she was found to have right sacroiliac joint pain and had physical therapy and had an injection which helped. When she went to the emergency room they prescribed a Medrol Dosepak and that helped her a great deal and she has been very active since. She is still taking naproxen 500 mg twice a day and tramadol twice a day. she notes that when she went to the emergency room her pain was 10/10. Now the pain is about 3/10. She went to pain management 7 days ago had a cortisone shot in the region of the greater trochanter. She sees them back next week. She is going to a [facility]. Henrry Andres MD [address] [facility] [address], [place], [address], [place] [facility] [place] [employer] [facility] 04/01/2023 19:42:26 OBGyn Episode No OBEpisode recorded.
--- OUTSIDE RECORDS SUMMARY | 2025-04-14 08:54 | XMS_ITS | Data Portability ---
Author Organization [place] - [facility], Main Office Address [address] [facility] [address] [place] [address] Care Team Providers Care Tube Coater Name Role Phone WM CHENG Primary Care Provider [phone] Assessment No assessment recorded. Plan of Treatment Reminders Order Date Submit Date Provider Last Modified By Organization Details Last Modified Time Details Appointments None record ed. Lab None record ed. Referral None record ed. Procedures None record ed. Surgeries None record ed. Imaging None record ed. Medication Orders None record ed. Patient TargetsNo targets recorded. Patient Instructions Encounter Date Encounter Id Patient Instructions Last Modified By Organization Details Last Modified Time 12/02/2019 [id number] Patient counsele d to F/U immediately if temp. greater than 100.4, if is unable to urinate, increased rectal pain or any other concerns. Not available 12/02/2019 18:45:03 She will follow up in 3 - 4 weeks and I will try to retreat both her LL and RA internal hemorrhoids. We will then wait 6 - 8 weeks and try to retreat all 3 areas. That will probably be her last treatment. I will want to see her 1 year after her last treatment in this series. Not available 12/02/2019 18:45:57 02/17/2020 [id number] Patient counsele d to F/U immediately if temp. greater than 100.4, if is unable to urinate, increased rectal pain or any other concerns. Not available 02/17/2020 13:32:51 She will follow up in 6 - 8 weeks and I will retreat her RP, then RA and possibly also her LL. We will probably do a 7th treatment 6 - 8 weeks after that and I will want to see her at 1 year after her last treatment. [email or web address] Not available 02/17/2020 13:33:51 04/15/2020 [id number] Patient counsele d to F/U immediately if temp. greater than 100.4, if is unable to urinate, increased rectal pain or any other concerns. Not available 04/15/2020 20:17:18 She will follow up in 3 months and I will again retreat all 3 areas. That will be her final treatment in this series. I will want to see her 1 year after her last treatment. Not available 04/15/2020 20:18:00 07/21/2020 [id number] Patient counsele d to F/U immediately if temp. greater than 100.4, if is unable to urinate, increased rectal pain or any other concerns. Not available 07/21/2020 20:56:44 She will follow up in 1 year even if she has had no bleeding. Not available 07/21/2020 20:57:06 09/08/2021 [id number] Patient counsele d to F/U immediately if temp. greater than 100.4, if is unable to urinate, increased rectal pain or any other concerns. Not available 10/10/2021 13:40:35 She will follow up in 6 - 8 weeks and I will retreat the RP and LL (the RA probably will not need to be retreated). We may or may not do another treatment 2 - 3 months after that. On today's visit I spent a total of 30 minutes prepping for her visit (reviewing past records), [email or web address] with her and documenting. Not available 10/10/2021 13:42:19 Reason for Referral None Reported. Problems Name Problem SNOMED Code Status Onset Date Resolution Date Notes Provider Name and Address Organization Details Recorded Time Pile easily reducible 423765883 Active 2019 Tx #1: 0 1.2 x 10 RP Tx #2: 0 1.2 x 10 LL Tx #3: 0 1.2 x 9 RA Tx #4: 12/02/19 1.2 x 7 RP Tx #5: 0 1.2 x 10 LL and 1.2 x 3 RA Tx #6: 0 1.2 x 6 RP, x 5 RA and x 2 LL Tx #7: 1.2 x 6 LL and 1.2 x 6 RP Tx #8: 1 1.2 x 5 RP, x 5 LL and x 3 RA Tx #9: Nayely Combs MD [address] [place] [address],[address], [place], [address], [facility] 2 13:36:27 External hemorrhoids 35768349 Active 2019 Nayely Combs MD [address] [place] [address],[address], [place], [address], [facility] 0 22:24:16 History of polyp of colon 167757986 Active 2019 Nayely Combs MD [address] [place] [address],[address], [place], [address], [facility] 0 22:26:29 Problem Notes None recorded. Procedures Surgical History Date Name Laterality Status Provider Name and Address Organization Details Recorded Time 09/08/20 IRC completed Nayely Combs MD [address] [place] [address],[address], [place], [address], [facility] 10/10/2021 13:36:07 07/21/20 20 IRC completed Nayely Combs MD [address] [place] [address],[address], [place], [address], [facility] 07/21/2020 20:54:51 04/15/20 IRC completed Nayely Combs MD [address] [place] [address],[address], [place], [address], [facility] 04/15/2020 20:15:31 02/17/20 IRC completed Nayely Combs MD [address] [place] [address],[address], [place], [address], [facility] 02/17/2020 13:31:47 12/02/19 IRC completed Nayely Combs MD [address] [place] [address],[address], [place], [address], [facility] 12/02/2019 18:44:30 11/11/19 20 IRC completed Nayely Combs MD [address] [place] [address],[address], [place], [address] 11/11/2019 18:10:47 10/28/19 IRC completed Nayely Combs MD [address] [place] [address],[address], [place], [address] 10/31/2019 18:22:55 10/21/19 IRC completed Nayely Combs MD [address] [place] [address],[address], [place], [address] 10/21/2019 22:23:35 10/16/19 20 colonoscopy completed Nayely Combs MD [address] [place] [address],[address], [place], [address] 10/21/2019 22:18:51 10/02/19 14 Date of Last Mammogram [facility] 10/21/2019 10:49:39 10/02/19 10 Date of Last Pap Smear completed Rahel Chou [facility] 10/21/2019 10:49:42 10/02/19 10 Thumb tendon transfer completed Nayely Combs MD [address] [place] [address],[address], [place], [address] 10/21/2019 22:20:19 10/02/18 99 hammer toe operation completed Nayely Combs MD [address] [place] [address],[address], [place], [address], [facility] 10/21/2019 22:20:13 10/02/18 87 Hysterectomy completed Nayely Combs MD [address], [place], [address], [facility] 10/21/2019 22:19:35 03/02/19 84 vaginal delivery of fetus completed Nayely Combs MD [address], [place], [address], [facility] 10/21/2019 22:21:13 10/02/18 75 tonsillectomy completed Nayely Combs MD [address], [place], [address], [facility] 10/21/2019 22:19:43 Imaging Results None recorded. Procedure Notes None recorded. Medical Equipment None Reported. Allergies Allergen ID Allergen Name Allergen Category Reaction Reaction Severity Criticality Documentation Date Start Date Code Code System Note Provider Name and Address Organization Details Recorded Time 2937 Xanax medicatio n respirato ry distress Not available Not available 10/21/2019 3 RxNorm Rahel Chou [facility] 0 10:46:43 Medications Name Sig Start Date Stop Date Status Note LastModified by Organization Details LastModified Time amoxicilli n 500 mg capsule 09/08 completed Not Available Not Available Not Available atorvastat in 10 mg tablet TAKE 1 TABLET BY MOUTH DAILY 09/08 completed Not Available Not Available Not Available IBU 800 mg tablet Take 1 tablet 3 times a day by oral route. active 0: She takes 1 about 1 - 2 times weekly . Not Available Not Available Not Available lidocaine 3 %-hydrocor tisone 0.5 % topical cream active Not Available Not Available Not Available albuterol sulfate HFA 90 mcg/actuat ion aerosol inhaler INHALE 2 PUFFS BY MOUTH EVERY 4 HOURS NEEDED FOR SHORTNESS OF BREATH OR WHEEZING. 09/08 completed Not Available Not Available Not Available GaviLyte-G 236 gram-22.74 gram-6.74 gram-5.86 gram oral solution 10/21 completed Not Available Not Available Not Available Chantix Starting Month Box 0.5 mg (11)-1 mg (42) tablets in dose pack 09/08 completed Not Available Not Available Not Available Vitals Date Recorded Body height Provider Name an d Address Organization Details Last Updated DateTime 12/02/2019 157.48 cm [facility] 12/02/2019 13:01:00 Date Recorded Body height Body temperature Provider N dar and Address Organization Details Last Updated DateTime 02/17/2020 157.48 cm 98.1 [degF] [facility] 02/17/2020 13:01:43 Date Recorded Body height Body temperature Provider N dar and Address Organization Details Last Updated DateTime 04/15/2020 157.48 cm 97.8 [degF] [facility] 04/15/2020 13:07:21 Date Recorded Body height Body temperature Provider N dar and Address Organization Details Last Updated DateTime 07/21/2020 157.48 cm 96.8 [degF] [facility] 07/21/2020 12:19:36 Social History Question Answer Notes LastModified by Organizat ion Details LastModified Time Tobacco Smoking Status Current Every Day Smoker Rahel Chou [facility] 10/21/2019 10:47:40 Do You Have An Advance Directive? No [email or web address] Information not available 10/21/2019 Alcohol Use Yes [email or web address] Information not available 10/21/2019 Alcohol Amount Occasional Information not available 10/21/2019 Caffeine Use Yes Informatio n not available 10/21/2019 Caffeine Type Coffee [email or web address] Informati on not available 10/21/2019 Caffeine Amount 3-4c/day Information not available 10/21/2019 Illicit Drug Use No [email or web address] Information not available 10/21/2019 What Was The Date Of Your Most Recent Tobacco Screening? 09/08/2021 Information not available 10/10/2021 How Much Tobacco Do You Smoke? 0.5 PPD [email or web address] Information not available 10/21/2019 How Many Years Have You Smoked Tobacco? 40 [email or web address] Information not available 10/21/2019 Sex: Female Functional Status Question Answer Note LastModified by Organizat ion Details LastModified Time Do you or have you ever used smokeless tobacco? 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 Never used electronic cigarettes [email or web address] Information not available 10/21/2019 Mental Status None recorded. Family History Relationship Description Onset Age of this Age Resolved Age Notes LastModified by Organization Details LastModified Time Father Coronary arterioscler osis 60 64 [email or web address] Not available 10:47:19 Mother Diabetes mellitus 78 82 [email or web address] Not available 10:47:32 Medical History Condition Response Coronary Artery Disease N Other N Atrial Fibrillation N Kidney Stones N Hyperthyroidism N Hernia N COPD N Depression N Glaucoma N Hypothyroidism N Accidental Bowel Leakage N Headaches/Migraines N Deep Vein Thrombosis N Cardiac Dysrhythmia N Anxiety Disorder N MRSA/VRE Exposure N Genital Herpes N Diverticulosis Y Cancer N Stroke N Head Trauma N Crohn's Disease N Genital Warts N Liver Disease/Hepatitis N HIV/AIDS N High Cholesterol N Irritable Bowel Syndrome N Autoimmune Disease N Kidney Disease N Anemia N Celiac Disease N Arthritis/Gout N Anal/Rectal Trauma/Injury N Diabetes N Cataracts N Bleeding Disorder N Seizures/Epilepsy N Congestive Heart Failure (CHF) N Diverticulitis N Heart Attack N Asthma N Reflux/GERD N Ulcerative Colitis N Sleep Apnea N Mitral Valve Prolapse N Aneurysm N Heart Disease N Pulmonary Embolism N Hypertension N Colon/Rectal Polyps N Gynecological History Statement/Question Response Number of Pregnancies? 2 Tear or Laceration During Delivery? Date of Last Mammogram 10/02/2013 Could You Be or Are You Currently Pregna nt? N Number of C-Sections? 0 Number of Vaginal Deliveries? 2 Accidental Bowel Leakage Post Delivery? N Episiotomy During Delivery? Y Date of Last Pap Smear 10/02/2009 Obstetrics History GPAL:G 0 P 0 0 0 0 Past Encounters Encounter ID Performer Location Encounter Start Date Encounter Closed Date Diagnosis/Indication Diagnosis SNOMED-CT Code Diagnosis ICD10 Code Diagnosis Note [id number] Nayely Combs MD Main Office [address] [facility] [address] [place] [address] 10/21/2019 10:37:02 10/21/2019 12:20:39 Pile easily reducible 935447642 K64.1 Stage 2 - 3 internal hemorrhoid s: I do think she would benefit from infrared coagulatio n and she wants to proceed. Full informed consent was given including risks/bene fits and alternativ es. All questions were answered. Her first IRC treatment was done today on the RP internal hemorrhoid . She of course needs to continue with her high fiber diet and drinking plenty of water to maintain daily and soft (Viola Scale type 4) BM's. I advised she should limit the amount of Excedrin that she takes to minimize the (already very low) risk of having bleeding from the treatment. She declined a surgical consult today. External hemorrhoids 239 04851 K64.4 These will improve with IRC. She understand s the only way to directly treat external hemorrhoid s/skin tags would be with a surgical excision. She does not wish to pursue this and her hemorrhoid s are not bad enough to warrant surgery. She should consistent ly use the flushable wipes if she cannot take a shower after a BM. History of polyp of colon 119267887 Z86.010 This was on her 1st colonoscop y done 5 years ago. Her recent scope was clean (no polyps). I advised she needs to find out when she is due for a repeat (it will probably be 7 - 10 years). [id number] Nayely Combs MD Main Office [address] [facility] [facility] [address] [place] [address] 10/28/2019 13:12:01 10/28/2019 13:53:30 Pile easily reducible 520533062 K64.1 Stage 2 - 3 internal hemorrhoid s: She is doing well with infrared coagulatio n. Her 2nd treatment was done today on the LL. She of course needs to continue with her high fiber diet and drinking plenty of water to maintain daily and soft (Viola Scale type 4) BM's. She knows she should limit the amount of Excedrin that she takes to minimize the (already very low) risk of having bleeding from the treatment. External hemorrhoids 239 96991 K64.4 These are improving with IRC. She understand s the only way to directly treat external hemorrhoid s/skin tags would be with a surgical excision. She does not wish to pursue this and her hemorrhoid s are not bad enough to warrant surgery. She should consistent ly use the flushable wipes if she cannot take a shower after a BM. 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 Her 3rd treatment was done today on the RA. She of course needs to continue with her high fiber diet and drinking plenty of water to maintain daily and soft (Viola Scale type 4) BM's. External hemorrhoids 239 20570 K64.4 These have improved with IRC. She understand s the only way to directly treat external hemorrhoid s/skin tags would be with a surgical excision. She does not wish to pursue this and her hemorrhoid s are not bad enough to warrant surgery. She should consistent ly use the flushable wipes if she cannot take a shower after a BM. History of polyp of colon 221684585 Z86.010 This was on her 1st colonoscop y done 5 years ago. Her recent scope was clean (no polyps). I reminded her again that she needs to find out when she is due for a repeat (it will probably be 7 - 10 years). 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 Her 4th treatment was done today on the RP. She of course needs to continue with her high fiber diet and drinking plenty of water to maintain daily and soft (Viola Scale type 4) BM's. External hemorrhoids 239 11190 K64.4 These have improved with IRC. She understand s the only way to directly treat external hemorrhoid s/skin tags would be with a surgical excision. She does not wish to pursue this and her hemorrhoid s are not bad enough to warrant surgery. She should consistent ly use the flushable wipes if she cannot take a shower after a BM. 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 Her 5th treatment was done today on her LL and RA internal hemorrhoid s. She of course needs to continue with her high fiber diet and drinking plenty of water to maintain daily and soft (Viola Scale type 4) BM's. External hemorrhoids 239 10649 K64.4 These have improved with IRC. She understand s the only way to directly treat external hemorrhoid s/skin tags would be with a surgical excision. She does not wish to pursue this and her hemorrhoid s are not bad enough to warrant surgery. She should consistent ly use the flushable wipes if she cannot take a shower after a BM. I advised she should use some OTC Desitin (zinc oxide) on the skin in her gluteal fold. 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 Her 6th treatment was done today on all three of her internal hemorrhoid s. She of course needs to continue with her high fiber diet and drinking plenty of water to maintain daily and soft (Viola Scale type 4) BM's. External hemorrhoids 239 23129 K64.4 These have improved with IRC. She understand s the only way to directly treat external hemorrhoid s/skin tags would be with a surgical excision. She does not wish to pursue this and her hemorrhoid s are not bad enough to warrant surgery. She should consistent ly use the flushable wipes if she cannot take a shower after a BM. [id number] Nayely Combs MD Main Office [address] [facility] [address] 07/21/2020 12:18:44 07/21/2020 13:04:08 Pile easily reducible 041888139 K64.1 Stage 2 - 3 internal hemorrhoid s: She has done well with infrared coagulatio n. Her 7th and final treatment was done today on her LL and RP internal hemorrhoid s. She understand s she will never get completely better given the size and severity of her hemorrhoid s when she started treatment. She of course needs to continue with her high fiber diet and drinking plenty of water to maintain daily and soft (Viola Scale type 4) BM's. External hemorrhoids 239 97318 K64.4 These have improved with IRC. She understand s the only way to directly treat external hemorrhoid s/skin tags would be with a surgical excision. She does not wish to pursue this and declined a surgical referral. She should consistent ly use the flushable wipes if she cannot take a shower after a BM. History of polyp of colon 810809474 Z86.010 This was on her 1st colonoscop y done 5 years ago. Her recent scope was clean (no polyps). I reminded her again that she needs to find out when she is due for a repeat (it will probably be 7 - 10 years). [id number] Nayely Combs MD Main Office [address] [address] 09/08/2021 12:09:35 09/08/2021 13:07:58 Pile easily reducible 198155909 K64.1 Stage 2 internal hemorrhoid s: She has done well with infrared coagulatio n in the past and I think she would benefit now. I reviewed full informed consent with her including risks/bene fits and alternativ es. She wanted to proceed with treatment. Her 8th overall (1st in this series) treatment was done today on all three of her internal hemorrhoid s. She of course needs to continue with her high fiber diet and drinking plenty of water to maintain daily and soft (Viola Scale type 4) BM's. I discussed with her again that even though her internal hemorrhoid s do not prolapse, they are rather large. She will not get completely better with IRC and will need to follow up on a yearly basis even if she does get completely better. She declined a surgical consult. External hemorrhoids 239 28492 K64.4 These will improve with [facility]. She understand s the only way to directly treat external hemorrhoid s/skin tags would be with a surgical excision. She does not wish to pursue this and her hemorrhoid s are not bad enough to warrant surgery. She understand s she will always have the external skin tagging even with any internal treatment. She should consistent ly use the flushable wipes if she cannot take a shower after a BM. History of polyp of colon 207052409 Z86.010 This was on her 1st colonoscop y done in about 2014. Her scope done 10/16/2019 was clean (no polyps). I reminded her again that she needs to find out when she is due for a repeat (it will probably be 7 - 10 years). Health Concerns Section Related Observation LastModified by Organization Detai ls LastModified Time None Recorded Concern Status LastModified by Organization Details LastModified Time None Recorded Advance Directives Directive N: Payers Insurance Date Sequence Insurance Name Policy Number Policy Beltre Covered Member ID Beltre Member ID Guarantor Name 10/10/2021 1 [facility] [id number] Byron [id number] Byron Phillip Notes Date Note Type Note Provider Name and Address Organization Details Recorded Time 12/02/2019 text/html She had no probl em with the last treatment and she has been doing great. She has had a slight amount of bright red blood on the wipe with a few BM's only for the last about 1 week. She has had no heavy bleeding. She has no leakage - she has no difficulty getting or staying clean with BM's. She states she does still wear a pad daily just in case - she has not had any leakage or bleeding on the pad. She states you have to understand though, if I do have bleeding I just can't leave work. Her BM's are always daily and soft with just her dietary fiber. Nayely Combs MD [address] [facility], [place], [address], [facility] - [facility] 12/02/2019 18:46:27 02/17/2020 text/html She had no probl em with the last treatment and she has been doing great. She has not been able to come in due to the Covid-19 pandemic. She had some minor bleeding with a few BM's within about 2 weeks after her last treatment. She then did not have any for 3 - 4 weeks. Over the last 2 weeks, she has seen a small amount of bright red blood on the wipe with 2 BM's. She has had no heavy bleeding. She does still have difficulty getting clean after BM's due to the external skin tagging. She has had no leakage or difficulty staying clean. She has not been wearing pads because she has not been working. She has been exercising and has not had any leakage with this. Her BM's have remained daily and soft with just her dietary fiber. Nayely Combs MD [address] [place] [address],[address], [place], [address], [facility] 02/17/2020 13:34:16 04/15/2020 text/html She had no major problem with the last treatment. She states she did have 3 days of significant pain afterwards but it did not limit her activity and resolved with ibuprofen. It resolved completely after the 3 days. She has been doing well since then. She has no discomfort. She was having no bleeding until 2 weeks ago when she had a small amount of bright red blood on the wipe with a BM and then again 2 days ago she had the same. She has otherwise had no bleeding. She has had no difficulty getting clean after BM's and has had no leakage - she no longer needs to wear a pad. This is a big improvement. Her BM's remain daily and soft (Viola Scale type 4) with just her dietary fiber. Nayely Combs MD [address] [place] [address],[address], [place], [address], [facility] 04/15/2020 20:18:19 07/21/2020 text/html She had no probl em with the last treatment and she is overall doing very well. She had no bleeding until about 1 month ago when she saw some dripping of BRB in the water with a BM. She had no leakage of blood after the BM. She then had no bleeding until about 3 days ago and this was the same (drip in the water but no leakage). She has had no difficulty getting or staying clean after BM's. She has had no discomfort. Her BM's are consistently daily and soft (Viola Scale type 4) with just her dietary fiber. Nayely Combs MD [address] [facility],[address], [place], [address], [facility] 07/21/2020 21:00:27 09/08/2021 text/html 09/08/21: See pre vious visits. She states she has been doing well since her last treatment on 07/21/2020. She had no bleeding or leakage until about 1 month ago. Over the last month she has had BRB on the wipe and some drip in the water. She then has leakage requiring her to wear a pad. She states her symptoms do not occur daily - she will have 3 - 5 days of bleeding/leakage and then 2 - 3 days where she does well. She presents today for an evaluation and to have treatment if it would be helpful. Bleeding: As above. She has not had any heavy bleeding. Pain: None Itching: She gets some external irritation and itching occasionally. Discharge: As above. Prolapse: Not that she feels or has to manually reduce. External swelling: She always has external swelling and this worsens after BM's. Discomfort: She has minor external irritation. She denies internal symptoms of pressure, a sense of being blocked when trying to have a BM or a sense of incomplete emptying after BM's. Previous Hemorrhoid Treatment: She has had the [facility] treatments here. Previous Lower GI Endoscopy: She has had 2 colonoscopies. She thinks she had some polyps on her first scope. Her 2nd one was done 10/16/2019 and she did not have any polyps. She has no family history of colon/rectal cancer or IBD. She is not sure when she is due for a repeat. I do have the pictures from her last colonoscopy but do not have the report or the recommendations of when she is to have a repeat. Fede Hogan MD. Bowel Habits: She has had long standing daily and soft (Viola Scale type 4) BM's. She tries to consistently eat a high fiber diet and drink plenty of water. She does not take any fiber supplements, stool softeners or stimulant laxatives. Amended 11/08/21: We called her on 10/27/21 to see how she was doing and to have her schedule to come back in. She stated she was still having bleeding and would like to see a surgeon. Summary of visits here: 10/21/2019: New patient - 40 years of symptoms. Worsened 5 - 6 years previously and had been persistent and significantly affecting her activities. She had bleeding with every BM and about 2 - 3 times monthly this was very heavy. She had leakage of blood on a daily basis that required her to wear a pad. She had swelling and questionable prolapse with every BM. She had some discomfort with only very occasional flares but had no pain. On exam she had significant external hemorrhoid swelling and skin tagging. She had reducible prolapse of internal tissue from the RP and LL areas. I discussed with her that her hemorrhoids were quite large but she could possibly get benefit from IRC. She declined a surgical referral. I treated her RP internal hemorrhoid with IRC. 10/28/2019: She was noticeably better. She had had minimal bleeding with BM's. She did still have leakage that was about the same as prior to the first treatment (it was not worse). She felt her swelling was significantly better. I treated her LL with IRC. 11/11/2019: She was significantly better. She had had minimal bleeding. Her leakage was much better and there were several days where she had no leakage. She had no discomfort. I treated her RA with IRC. 12/02/2019: She had had no bleeding or leakage. She was doing great. I retreated her RP with IRC. 02/17/2020: It took awhile for her to return due to the Covid-19 pandemic. Despite this she was still doing great. She had no bleeding. She had some difficulty getting clean after BM's due to the skin tagging but she had no difficulty staying clean. I retreated her LL and RA with IRC. Nayely Combs MD [address] [facility],[address], [place], [address], [facility] 11/08/2021 11:56:22 OBGyn Episode No OBEpisode recorded.
--- OUTSIDE RECORDS SUMMARY | 2025-04-14 08:54 | XMS_ITS | Continuity of Care Document ---
Author Organization [facility] Address [address] [place] [address] [address] [place] [address] Phone Care Team Providers Care Wood Gang Sawyer Name Role Phone Zelaya OD, Brooks Unavailable Unavailable Procedures Procedure Date Eye Exam & Treatment Refraction Advance Directives Directive Yes / No Effective Date File Name No Information Encounters Encounter Description Practice Location Reason(s) For Visit Diagnoses Date Provider Providers Copied on Encounter [facility], [address] [place] [address] [address], [place], [place], [id number], [place] tel:[phone] [facility] No Information [phone] Zelaya OD Brooks. [address] , [address], [place], [address], [place]. tel:[phone] Family History Family Member Type Diagnosis Age At Onset No Information Payers Payer name Insurance type Covered democrat ID Authoriza tion(s) [facility] Out Of State [id number] Social History Type Description Quantity Date Captured [...]
== END 2025-04-14 08:48 | disposition home or self-care (01) ==
LOC: ANHAUDIO 08:48
PROVIDERS: PCP Family Medicine; Visit Provider Otolaryngology
DX: H93.13 Tinnitus, bilateral (principal); H90.3 Sensorineural hearing loss, bilateral; H69.90 Unspecified Eustachian tube disorder, unspecified ear; G47.33 Obstructive sleep apnea (adult) (pediatric); J34.2 Deviated nasal septum
CPT/HCPCS: 92557; 92567

== ENCOUNTER 2025-05-05 13:29 | Outpatient (CLI) | payer OTHER, SELFPAY ==
--- NOTE | ~2025-05-05 | CT_ITS ---
CT Scan of the Chest without Contrast: Clinical Indication: Lung cancer screening, nicotine dependence Technique: Contiguous sections were acquired throughout the chest without intravenous contrast. Dose reduction technique was used on this scan by utilizing automated exposure control and iterative recon struction technique. The dose-length product (DLP) was 68.53 mGy-cm. Findings: There is no evidence of any significant mediastinal, hilar or axillary lymphadenopathy. Coronary baltazar ry calcifications are present. There is no evidence of pleural or pericardial effusion. 7 mm nodular opacity present at the left lung base (axial image 98). Images through the upper abdomen reveal no abnormalities. Impression: Lung RADS 3: Probably benign. Six-month follow-up CT recommended. Reviewed, dictated and finalized at location . Impression: Lung RADS 3: Probably benign. Six-month follow-up CT recommended.
--- OUTSIDE RECORDS SUMMARY | 2025-05-05 13:37 | XMS_ITS | Clinical Summary ---
Author Organization [facility] Address [address] [place] [id number] Care Team Providers Care Patient Financial Specialist Name Role Phone None, Provider MD Primary [...] patient's age to complete this topic Insurance [facility] Care Teams Patient Financial Specialist Relationship Specialty Start Date End Date None, Provider, PCP - General 12/14/21
== END 2025-05-05 13:30 | disposition home or self-care (01) ==
PROVIDERS: PCP Family Medicine; Visit Provider Family Medicine
DX: Z12.2 Encounter for screening for malignant neoplasm of respiratory organs (principal); Z87.891 Personal history of nicotine dependence
CPT/HCPCS: 71271

== ENCOUNTER 2025-06-17 15:32 | Outpatient (CLI) | payer OTHER, SELFPAY ==
--- OUTSIDE RECORDS SUMMARY | 2008-07-31 09:30 | XMS_ITS | Continuity of Care Document ---
Author Organization [facility] Address [address] [place] [address] [address] [place] [address] Phone Care Team Providers Care Cardiology Coordinator Name Role Phone Zelaya OD, Brooks Unavailable Unavailable Procedures Procedure Date Eye Exam & Treatment Refraction Advance Directives Directive Yes / No Effective Date File Name No Information Encounters Encounter Description Practice Location Reason(s) For Visit Diagnoses Date Provider Providers Copied on Encounter [facility], [address] [place] [address] [address], [place], [place], [id number], [place] tel:[phone] [facility] No Information 0-200 8 Zelaya OD Brooks. [address] , [address], [place], [address], [place]. tel:[phone] Family History Family Member Type Diagnosis Age At Onset No Information Payers Payer name Insurance type Covered constitution party ID Authoriza tion(s) [facility] [place] [id number] Social History Type Description Quantity Date Captured [...]
--- NOTE | ~2025-06-17 | MM_ITS ---
EXAMINATION: MM screening rupali BI w angelic HISTORY: Screening TECHNIQUE: Craniocaudal and mediolateral oblique 3-D tomosynthesis images were obtained and synthetic 2-D images were generated. CAD analysis was submitted and interpreted. COMPARISON: 05/27/2024 BREAST PARENCHYMAL COMPOSITION: There are scattered areas of fibroglandular density. FINDINGS: There is no evidence of suspicious mass, calcification, or architectural distortion to suggest malignancy. There has been no suspicious interval change. IMPRESSION: 1. No mammographic evidence of malignancy. Recommend routine screening mammography in one year. BI-RADS Category 2: Benign finding(s) Reviewed, dictated and finalized at location Q. IMPRESSION: 1. No mammographic evidence of malignancy. Recommend routine screening mammogra phy in one year. BI-RADS Category 2: Benign finding(s)
--- OUTSIDE RECORDS SUMMARY | 2025-06-17 16:44 | XMS_ITS | Clinical Summary ---
Author Organization [facility] Address [address] [place] [id number] Care Team Providers Care Jet Aircraft Servicer Name Role Phone None, Provider MD Primary [...] Scan (General) 2020 COVID-19 Vaccine (4 - 2024-2 6 season) 2025 08/27/2021, 01/18/2021, 12/28/2020 RSV Immunization or 60+ [...] patient's age to complete this topic Insurance [facility] Care Teams Jet Aircraft Servicer Relationship Specialty Start Date End Date None, Provider, PCP - General 12/14/21
== END 2025-06-17 15:33 | disposition home or self-care (01) ==
PROVIDERS: PCP Family Medicine; Visit Provider Student in an Organized Health Care Education/Training Program
DX: Z12.31 Encounter for screening mammogram for malignant neoplasm of breast (principal)
CPT/HCPCS: 77063; 77067

== ENCOUNTER 2025-08-07 09:55 | Outpatient (CLI) | payer OTHER, SELFPAY ==
--- OUTSIDE RECORDS SUMMARY | 2008-07-31 08:30 | XMS_ITS | Continuity of Care Document ---
Author Organization [facility] Address [address] [place] [address] [address] [place] [address] Phone Care Team Providers Care Evidence Specialist Name Role Phone Zelaya OD, Brooks Unavailable Unavailable Procedures Procedure Date Eye Exam & Treatment Refraction Advance Directives Directive Yes / No Effective Date File Name No Information Encounters Encounter Description Practice Location Reason(s) For Visit Diagnoses Date Provider Providers Copied on Encounter Located within [facility], [address] [place] [address] [address], [place], [place], [id number], [place] tel:[phone] [facility] No Information 0-200 8 Zelaya OD Brooks. [address] , [address], [place], [address], [place]. tel:[phone] Family History Family Member Type Diagnosis Age At Onset No Information Payers Payer name Insurance type Covered green party ID Authoriza tion(s) [facility] [id number] Social History Type Description Quantity Date Captured Comments Sex Female Smoking Status No Information Chief Complaint And Reason For Visit No Information Reason For Referral Reason For Referral No Information History Of Present Illness Encounter Date Complaint History Of Prese nt Illness No Information Functional Status Date Functional Assessmen t No Information Instructions Date Instruction Additional Infor mation No Information Assessments Type Assessment Date No Information Patient Care Teams Name Effective Dates (start - stop) Status Members No Information
--- OUTSIDE RECORDS SUMMARY | 2025-08-07 18:27 | XMS_ITS | Clinical Summary ---
Author Organization [facility] Address [address] [place] [address] Care Team Providers Care Perforator Name Role Phone None, Provider MD Primary [...] 12/22/1997 Dexa Scan (General) 2020 COVID-19 Vaccine ( - 2024-2 6 season) 2025 08/27/2021, 01/18/2021, 12/28/2020 Influenza Adult (#1) 2025 RSV Immunization or 60+ Years (1 - 1-dose 75+ series) 2030 Hepatitis A Vaccines Aged Out No long er eligible based on patient's age to complete this topic Meningococcal B Vaccine Aged Out No l onger eligible based on patient's age to complete this topic Meningococcal Vaccine Aged Out No jyoti jennifer eligible based on patient's age to complete this topic RSV Immunizations Under 20 Months Aged Out No longer eligible b ased on patient's age to complete this topic Insurance [facility] Care Teams Perforator Relationship Specialty Start Date End Date None, Provider, PCP - General 12/14/21
--- OUTSIDE RECORDS SUMMARY | 2025-08-07 18:27 | XMS_ITS | Data Portability ---
Author Organization [place] - [facility], Main Office Address [address] [place] [address] Care Team Providers Care Tool Radial Drill Press Set Up Operator Name Role Phone WM CHENG Primary Care Provider [phone] Assessment No assessment recorded. Plan of Treatment [...] no bleeding. Not available 07/21/2020 20:57:06 09/08/2021 [id number] Patient counsele d to F/U immediately if [...] prepping for her visit (reviewing past records), [id number] with her and documenting. Not available 10/10/2021 13:42:19 Reason for Referral None Reported. Problems Name Problem SNOMED Code Status Onset Date Resolution Date Notes Provider Name and Address Organization Details Recorded Time Pile easily reducible 108233908 Active 2019 Tx #1: 0 1.2 x [...] 3 RA Tx #9: Nayely Combs MD [address] [place] [address],[address], [place], [address], [facility] [place] [place] 2 13:36:27 External hemorrhoids 20939522 Active 2019 Nayely Combs MD [address] [place] [address],[address], [place], [address], [facility] [place] [place] 0 22:24:16 History of polyp of colon 364993928 Active 2019 Nayely Combs MD [address] [place] [address],[address], [place], [address], [facility] [place] [place] 0 22:26:29 Problem Notes None recorded. Procedures Surgical History Date Name Laterality Status Provider Name and Address Organization Details Recorded Time 09/08/20 IRC completed Nayely Combs MD [address] [place] [address],[address], [place], [address], [facility] [place] [place] 10/10/2021 13:36:07 07/21/20 20 IRC completed Nayely Combs MD [address] [place] [address],[address], [place], [address], [facility] [place] [place] 07/21/2020 20:54:51 04/15/20 IRC completed Nayely Combs MD [address] [place] [address],[address], [place], [address], [facility] [place] [place] 04/15/2020 20:15:31 02/17/20 IRC completed Nayely Combs MD [address] [place] [address],[address], [place], [address], [facility] [place] [place] 02/17/2020 13:31:47 12/02/19 IRC completed Nayely Combs MD [address] [place] [address],[address], [place], [address], [facility] [place] [place] 12/02/2019 18:44:30 11/11/19 20 IRC completed Nayely Combs MD [address] [place] [address],[address], [place], [address] [place] [facility] [place] 11/11/2019 18:10:47 10/28/19 IRC completed Nayely Combs MD [address] [place] [address],[address], [place], [address] [place] 10/31/2019 18:22:55 10/21/19 IRC completed Nayely Combs MD [address] [place] [address],[address], [place], [address] [place] 10/21/2019 22:23:35 10/16/19 20 colonoscopy completed Nayely Combs MD [address] [place] [address],[address], [place], [address] [place] 10/21/2019 22:18:51 10/02/19 14 Date of Last Mammogram completed Rahel Chou [facility] 10/21/2019 10:49:39 10/02/19 10 Date of Last Pap Smear completed Rahel Chou [facility] 10/21/2019 10:49:42 10/02/19 10 Thumb tendon transfer completed Nayely Combs MD [address] [place] [address],[address], [place], [address] [place] [facility] [place] 10/21/2019 22:20:19 10/02/18 99 hammer toe operation completed Nayely Combs MD [address] [place] [address],[address], [place], [address], [facility] [place] 10/21/2019 22:20:13 10/02/18 87 Hysterectomy completed Nayely Combs MD [address] [facility],[address], [place], [address], [facility] [place] [place] 10/21/2019 22:19:35 03/02/19 84 vaginal delivery of fetus completed Nayely Combs MD [address] [facility],[address], [place], [address], [facility] [place] [place] 10/21/2019 22:21:13 10/02/18 75 tonsillectomy completed Nayely Combs MD [address] [facility],[address], [place], [address], [facility] [place] [place] 10/21/2019 22:19:43 Imaging Results None recorded. Procedure Notes None recorded. Medical Equipment None Reported. Allergies Allergen ID Allergen Name Allergen Category Reaction Reaction Severity Criticality Documentation Date Start Date Code Code System Note Provider Name and Address Organization Details Recorded Time 2937 Xanax medicatio n respirato ry distress Not available Not available 10/21/2019 3 RxNorm Rahel Chou [facility] [place] 0 10:46:43 Medications Name Sig Start Date [...] Updated DateTime 12/02/2019 157.48 cm Ellen Bolivar [facility] 12/02/2019 13:01:00 Date Recorded Body height Body temperature Provider N dar and Address Organization Details Last Updated DateTime 02/17/2020 157.48 cm 98.1 [degF] [facility] 02/17/2020 13:01:43 Date Recorded Body height Body temperature Provider N dar and Address Organization Details Last Updated DateTime 04/15/2020 157.48 cm 97.8 [degF] [facility] 04/15/2020 13:07:21 Date Recorded Body height Body temperature Provider N dar and Address Organization Details Last Updated DateTime 07/21/2020 157.48 cm 96.8 [degF] [facility] 07/21/2020 12:19:36 Social History Question Answer Notes LastModified by Organizat ion Details LastModified Time Tobacco Smoking Status Current Every Day Smoker Rahel Chou [facility] 10/21/2019 10:47:40 Do You Have An Advance Directive? No [email or web address] Information not available 10/21/2019 Alcohol Use Yes [email or web address] Information not available 10/21/2019 Alcohol Amount Occasional [email or web address] Information not available 10/21/2019 Caffeine Use Yes [email or web address] Informatio n not available 10/21/2019 Caffeine Type Coffee [email or web address] Informati on not available 10/21/2019 Caffeine Amount 3-4c/day [email or web address] Information not available 10/21/2019 Illicit Drug Use No [email or web address] Information not available 10/21/2019 What Was The Date Of Your Most Recent Tobacco Screening? 09/08/2021 Information not available 10/10/2021 How Much Tobacco Do You Smoke? 0.5 PPD [email or web address] Information not available 10/21/2019 How Many Years Have You Smoked Tobacco? 40 [email or web address] Information not available 10/21/2019 Sex: Female Functional Status Question Answer Note LastModified by Organizat ion Details LastModified Time Do you or have you ever used smokeless tobacco? 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 Never used electronic cigarettes [email or web address] Information not available 10/21/2019 Mental Status None recorded. Family History Relationship Description Onset Age of this Age Resolved Age Notes LastModified by Organization Details LastModified Time Father Coronary arterioscler osis 60 64 [email or web address] Not available 10:47:19 Mother Diabetes mellitus 78 82 [email or web address] Not available 10:47:32 Medical History Condition Response Coronary Artery Disease N Other N Atrial Fibrillation N Kidney Stones N Hyperthyroidism N Hernia N COPD N Glaucoma N Hypothyroidism N Depression N Accidental Bowel Leakage N Headaches/Migraines N Deep Vein Thrombosis N Cardiac Dysrhythmia N Anxiety Disorder N MRSA/VRE Exposure N Genital Herpes N Diverticulosis Y Cancer N Stroke N Head Trauma N Genital Warts N Crohn's Disease N Liver Disease/Hepatitis N HIV/AIDS N High Cholesterol N Irritable Bowel Syndrome N Autoimmune Disease N Kidney Disease N Anemia N Arthritis/Gout N Celiac Disease N Anal/Rectal Trauma/Injury N Diabetes N Cataracts N Bleeding Disorder N Seizures/Epilepsy N Congestive Heart Failure (CHF) N Diverticulitis N Asthma N Heart Attack N Reflux/GERD N Ulcerative Colitis N Sleep Apnea N Aneurysm N Mitral Valve Prolapse N Heart Disease N Pulmonary Embolism N [...] Diagnosis SNOMED-CT Code Diagnosis ICD10 Code Diagnosis IMO Codes Diagnosis Note [id number] Nayely Combs MD Main Office [address] [address] 10/21/2019 10:37:02 10/21/2019 12:20:39 Pile easily reducible 366749543 K64.1 Stage 2 - 3 internal hemorrhoid [...] of water to maintain daily and soft (Dorchester Scale type 4) BM's. I advised she should limit the amount of Excedrin that she takes to minimize the (already very low) risk of having bleeding from the treatment. She declined a surgical consult today. External hemorrhoids 239 78623 K64.4 These will improve with IRC. She [...] a BM. History of polyp of colon 309823646 Z86.010 This was on her 1st colonoscop y done 5 years ago. Her recent scope was clean (no polyps). I advised she needs to find out when she is due for a repeat (it will probably be 7 - 10 years). [id number] Nayely Combs MD Main Office [address] [place] [address] 10/28/2019 13:12:01 10/28/2019 13:53:30 Pile easily reducible 868120693 K64.1 Stage 2 - 3 internal hemorrhoid s: She is doing well with infrared coagulatio n. Her 2nd treatment was done today on the LL. She of course needs to continue with her high fiber diet and drinking plenty of water to maintain daily and soft (Dorchester Scale type 4) BM's. She knows she should limit the amount of Excedrin that she takes to minimize the (already very low) risk of having bleeding from the treatment. External hemorrhoids 239 03832 K64.4 These are improving with IRC. She [...] [id number] Nayely Combs MD Main Office [address] [address] 11/11/2019 12:01:32 11/11/2019 12:55:17 Pile easily reducible 875103122 K64.1 Stage 2 - 3 internal hemorrhoid s: She is doing well with infrared coagulatio n. Her 3rd treatment was done today on the RA. She of course needs to continue with her high fiber diet and drinking plenty of water to maintain daily and soft (Dorchester Scale type 4) BM's. External hemorrhoids 239 73606 K64.4 These have improved with IRC. She [...] a BM. History of polyp of colon 704488318 Z86.010 This was on her 1st colonoscop y done 5 years ago. Her recent scope was clean (no polyps). I reminded her again that she needs to find out when she is due for a repeat (it will probably be 7 - 10 years). [id number] Nayely Combs MD Main Office [address] [address] 12/02/2019 12:59:39 12/02/2019 13:38:03 Pile easily reducible 500064912 K64.1 Stage 2 - 3 internal hemorrhoid s: She is doing well with infrared coagulatio n. Her 4th treatment was done today on the RP. She of course needs to continue with her high fiber diet and drinking plenty of water to maintain daily and soft (Dorchester Scale type 4) BM's. External hemorrhoids 239 10633 K64.4 These have improved with IRC. She [...] Nayely Combs MD Main Office [address] [facility] [place] [address] 02/17/2020 12:57:31 02/17/2020 13:24:21 Pile easily reducible 970942282 K64.1 Stage 2 - 3 internal hemorrhoid s: She is doing well with infrared coagulatio n. Her 5th treatment was done today on her LL and RA internal hemorrhoid s. She of course needs to continue with her high fiber diet and drinking plenty of water to maintain daily and soft (Dorchester Scale type 4) BM's. External hemorrhoids 239 28211 K64.4 These have improved with IRC. She [...] [id number] Nayely Combs MD Main Office [address] [facility] [place] [address] 04/15/2020 13:05:44 04/15/2020 13:36:41 Pile easily reducible 694150428 K64.1 Stage 2 - 3 internal hemorrhoid s: She is doing well with infrared coagulatio n. Her 6th treatment was done today on all three of her internal hemorrhoid s. She of course needs to continue with her high fiber diet and drinking plenty of water to maintain daily and soft (Dorchester Scale type 4) BM's. External hemorrhoids 239 01100 K64.4 These have improved with IRC. She [...] MD Main Office [address] [facility] [place] [address] 07/21/2020 12:18:44 07/21/2020 13:04:08 Pile easily reducible 720415936 K64.1 Stage 2 - 3 internal hemorrhoid [...] of water to maintain daily and soft (Dorchester Scale type 4) BM's. External hemorrhoids 239 47084 K64.4 These have improved with IRC. She understand s the only way to directly treat external hemorrhoid s/skin tags would be with a surgical excision. She does not wish to pursue this and declined a surgical referral. She should consistent ly use the flushable wipes if she cannot take a shower after a BM. History of polyp of colon 569226799 Z86.010 This was on her 1st colonoscop y done 5 years ago. Her recent scope was clean (no polyps). I reminded her again that she needs to find out when she is due for a repeat (it will probably be 7 - 10 years). [id number] Nayely Combs MD Main Office [address] [address] 09/08/2021 12:09:35 09/08/2021 13:07:58 Pile easily reducible 244359039 K64.1 Stage 2 internal hemorrhoid s: She [...] of water to maintain daily and soft (Dorchester Scale type 4) BM's. I discussed with her again that even though her internal hemorrhoid s do not prolapse, they are rather large. She will not get completely better with IRC and will need to follow up on a yearly basis even if she does get completely better. She declined a surgical consult. External hemorrhoids 239 01360 K64.4 These will improve with IRC. She [...] a BM. History of polyp of colon 126187783 Z86.010 This was on her 1st colonoscop [...] Beltre Member ID Guarantor Name 10/10/2021 1 [facility] [id number] Byron [id number] Byron Phillip Notes Date Note Type Note Provider Name and Address Organization Details Recorded Time 12/02/2019 text/html She had no problem with the last treatment and she has [...] dietary fiber. Nayely Combs MD [address] [facility], [place], [address], [facility] [facility] 12/02/2019 18:46:27 02/17/2020 text/html She had no problem with the last treatment and she has [...] just her dietary fiber. Nayely Combs MD [address] [place] [address],[address], [place], [address], [facility] [place] [place] 02/17/2020 13:34:16 04/15/2020 text/html She had no [...] improvement. Her BM's remain daily and soft (Dorchester Scale type 4) with just her dietary fiber. Nayely Combs MD [address] [place] [address],[address], [place], [address], [facility] [place] [place] 04/15/2020 20:18:19 07/21/2020 text/html She had no problem with the last treatment and she is [...] Her BM's are consistently daily and soft (Dorchester Scale type 4) with just her dietary fiber. Nayely Combs MD [address] [facility],[address], [place], [address], [facility] [place] 07/21/2020 21:00:27 09/08/2021 text/html ROS as noted in the HPI 09/08/21: See previous visits. She states she has been doing [...] Previous Hemorrhoid Treatment: She has had the [facility] treatments here. Previous Lower GI [...] has had long standing daily and soft (Dorchester Scale type 4) BM's. She tries to consistently eat a high fiber diet and drink plenty of water. She does not take any fiber supplements, stool softeners or stimulant laxatives. Amended 11/08/21: We called her on 1/26/22 to see how she was doing and [...] with IRC. Nayely Combs MD [address] [facility],[address], [place], [address], [facility] [place] 11/08/2021 11:56:22 OBGyn Episode No OBEpisode recorded.
--- NOTE | 2025-09-01 11:15 | WPDSLEEPSTUD ---
Sleep Study Date of Study: 08/07/25 Ordering Provider: Christiane Wakefield DO Interpreting Physician: Christiane Wakefield DO Sleep Study Type: Polysomnogram Height: 1.55 m Weight: 65.771 kg Body Mass Index: 27.3 Neck Circumference (inches): 13 [place]: 5 Reason for Sleep Study Witnessed apneas Sleep History The patient is a 69-year-old female that had a sleep study ordered for evaluation of sleep apnea.? He denies awakening from sleep short of breath.? He denies awakening at night with heartburn, belching or cough.? She frequently snores but is rarely loud enough that others complain.? He occasionally has trouble sleeping when she has a cold.? She denies waking up gasping for air throughout the night.? She rarely has breathing problems at night observed by herself or others.? She denies sweating excessively at night.? She denies having heart palpitations or irregular heartbeats during the night.? She occasionally falls asleep during the day but never while driving.? She denies sleep paralysis, cataplexy and hypnagogic/hypnopompic hallucinations.? She denies having trouble at school or work due to sleepiness.? She denies feeling afraid of going to sleep.? She rarely has nightmares. ?She occasionally remembers her dreams.? She rarely has thoughts racing through her mind.? She rarely feels sad, depressed or anxious.? She rarely has muscular tension.? She occasionally notices parts of her body jerk.? She occasionally kicks during the night.? She denies having crawling and aching feelings in her legs and denies having leg pain during the night.? She denies grinding her teeth during sleep and denies awakening with morning jaw pain.? She is rarely bothered by pain during the day but never awakened by pain during the night.? She occasionally wakes up feeling stiff in the morning.? She rarely wakes up with sore or achy muscles.? She rarely wakes up with pain in the neck, spine and other joints.? She goes to bed between 9:00 p.m. to 1:00 a.m. every night.? It takes her 15 minutes to fall asleep.? She wakes up once throughout the night to urinate and is able to fall back asleep within 5-10 minutes.? She wakes up between 6-9 a.m. every morning.? She typically gets 7 8 hours of sleep per night.? She will stay in bed for 5-10 minutes after waking up in the morning.? She currently lives with her .? She occasionally consumes caffeinated beverages within 2 hours of bedtime.? She denies engaging in physical exercise before bedtime.? She will read watch television before falling asleep.? She will take naps in afternoon or the evening and they are refreshing.? She consumes 2-3 cups of caffeinated beverage per day.? She quit smoking cigarettes 10 months ago.? She consumes 2-3 beers a few times per week.? She does use a THC vape pen occasionally. [facility] Past Medical History Medical History Stopped smoking between 3 and 6 months ago (~12/30/24) Hemorrhoids with prolapsed tissue that cannot be manually replaced Adenomatous colon polyp [facility] Surgical History Surgical History H/O hemorrhoidectomy 04/29/24 Internal and external hemorrhoidectomy x2 columns History of bunionectomy H/O: hysterectomy Family History Family History Mother Diabetes mellitus Other Family history of coronary artery disease Family history of malignant neoplasm of breast in first degree relative Social History Social History Smoking packs per day: 1 Smoking cigarettes per day: 20.0 Years smoked: 50 Smoking pack-years: 50.00 Smoking status: Former smoker (stopped 11/29/24) Tobacco type: cigarettes Second hand tobacco smoke exposure: No Additional smoking assessment comments: TRYING TO QUIT-SMOKING 4-5/DAY Alcohol intake: current Drinks per week: 8 Alcohol use details: 3 beers, twice weekly Substance use: current Substance use type: marijuana Other substance usage details: smokes marijuana, edibles-seldom, maybe once every 2 weeks. Last use: 08/03/25 Lack of Transportation: No Lack of Food: Never True Current Housing: I Have Housing Concerned About Future Housing: No Difficulty Paying Gas/Electric Bills: No Difficulty Paying for Meds: No Currently Unemployed: No Education: Trade/Vocational Certificate Difficulty w/ Childcare or Family Care: No Living arrangements: with family Additional living arrangements comments: [facility] Gender identity (if verbalized by the patient): Female Sexual Orientation (if Verbalized by the Patient): Straight or Heterosexual Spiritual care concerns: No Agree to blood products: Yes Medications Home Medications ?Medication ?Instructions ?Recorded ?Confirmed ?Type valacyclovir 1 gram tablet 2,000 mg (2 x 1 gram) PO Q12H PRN 08/11/23 08/15/25 Rx (Valtrex) cold sores #30 tabs diazepam 5 mg tablet 5 mg PO BID PRN anxiety #60 tabs 08/22/24 08/04/25 Rx varenicline tartrate 1 mg tablet 1 mg PO BID #180 tabs 06/17/25 08/15/25 Rx fluticasone propionate 50 2 spray intranasal DAILY chronic 06/26/25 08/15/25 Rx mcg/actuation nasal seasonal allergic rhinitis #48 mL spray,suspension (Flonase Allergy Relief) ibandronate 150 mg tablet 150 mg PO MONTHLY #1 tablet 06/27/25 08/04/25 Rx naproxen 500 mg tablet 500 mg PO BID PRN pain #60 tabs 07/01/25 08/15/25 Rx eszopiclone 2 mg tablet (Lunesta) 2 mg PO QHS #1 tablet 07/02/25 08/04/25 Rx atorvastatin 10 mg tablet 10 mg PO DAILY #90 tabs 07/20/25 08/15/25 Rx Sleep Procedure A full night polysomnogram using the [employer] multi-channel system recorded the standard physiologic parameters including EEG, EOG, submentalis EMG, anterior tibialis EMG, EKG, body position, nasal and oral airflow using nasal pressure sensor and thermistor.? Respiratory parameters of chest and abdominal movements were recorded with Respiratory Inductance Plethysmography belts. Oxygen saturation was recorded by pulse oximetry. Video monitoring was also performed. Sleep stages, periodic limb movements, and EEG arousals were scored in 30 second epochs according to the criteria of the AASM Scoring Manual. The Apnea-Hypopnea Index was calculated using CMS guidelines for definition of hypopnea with 4% O2 desaturations while scoring respiratory events. Sleep Architecture The total recording time was 433.4 minutes.? The total sleep time was 403.0 minutes. Sleep latency was 5.7 minutes. REM latency was 162.0 minutes. Sleep efficiency was 93.0%. The patient had 20 awakenings for an awakening index of 3.0. Wake after sleep onset time was 25.0 minutes. The patient spent 25.5 minutes, 6.3% of total sleep time in Stage N1. The patient spent 234.5 minutes, 58.2% in Stage N2. The patient spent 54.0 minutes, 13.4% in Stage N3. The patient spent 89.0 minutes, 22.1% in Stage REM sleep. Respiratory Analysis The patient had 46 hypopneas, 2 obstructive apneas and 3 central apneas for an overall Apnea Hypopnea Index of 7.6. The REM Apnea Hypopnea Index was 31.0. The NREM Apnea Hypopnea Index was 1.9. The patient had a Central Apnea Hypopnea Index of 0.4. There was no evidence of Romulo-Londono Respirations. Arousals There were 103 total arousals for an arousal index of 15.3. There were 82 spontaneous arousals for an index of 12.2. There were 7 arousals due to respiratory events for an index of 1.0. There were 0 arousals due to periodic limb movements for an index of 0.? There were 14 arousals due to isolated limb movements for an index of 2.1. Periodic Limb Movements The patient had 22 isolated limb movements with an index of 3.3. The patient had 0 periodic limb movements with an index of 0. Patient had a total of 22 limb movements with a total limb movement index of 3.3. Oximetry Data The patient had an average oxygen saturation of 95.0% in sleep with a minimum oxygen saturation of 83.0% and a maximum oxygen saturation of 98.0%. The patient had 49 oxygen desaturations that were 4% or greater resulting in an Oxygen Desaturation Index of 7.3.? The patient spent 0.5 minutes, 0.1% of total sleep time with an oxygen saturation below 88%. Snoring Profile Mild snoring was present throughout the study. Cardiac Profile The EKG showed normal sinus rhythm with occasional PVCs. The patient had an average pulse rate of 69.8 bpm with a minimum pulse of rate of 61.0 bpm and a maximum pulse rate of 92.0 bpm.? EEG Profile No signs of seizure activity seen. Assessment and Plan Assessment and Plan (1) Obstructive sleep apnea: Code(s): G47.33 - Obstructive sleep apnea (adult) (pediatric) Status: Acute Assessment and Plan: The patient had an overall AHI of 7.6 with desaturation down to 83%. This is consistent with mild sleep apnea. Due to the severity of the patient's hypersomnia (ESS of 14/24), the patient qualifies for treatment. I recommend that the patient have a CPAP Titration study with the use of a hypnotic to ensure we obtain enough sleep data and find an optimal pressure setting. Data The data obtained during this sleep study is adequate for interpretation. Certification This sleep study has been reviewed by a board certified sleep medicine physician.
[2025-09-08 12:45] VITALS: BMI 27.3
== END 2025-08-08 07:20 | disposition home or self-care (01) ==
PROVIDERS: PCP Family Medicine Adolescent Medicine; Visit Provider Family Medicine
DX: G47.33 Obstructive sleep apnea (adult) (pediatric) (principal); F39 Unspecified mood [affective] disorder
CPT/HCPCS: 95810

== ENCOUNTER 2025-08-15 02:50 | Day surgery (SDC) | payer OTHER, SELFPAY ==
--- OUTSIDE RECORDS SUMMARY | 2025-08-15 02:52 | XMS_ITS | Clinical Summary ---
Author Organization [facility] Address [address] [place] [id number] Care Team Providers Care Associate Software Developer Name Role Phone None, Provider MD Primary [...] patient's age to complete this topic Insurance [facility] Care Teams Associate Software Developer Relationship Specialty Start Date End Date None, Provider, PCP - General 12/14/21
--- OUTSIDE RECORDS SUMMARY | 2025-08-15 02:52 | XMS_ITS | Data Portability ---
Author Organization [place] - [facility], Main Office Address [address] [facility] [address] [place] [address] Care Team Providers Care Cartography Professor Name Role Phone WM CHENG Primary Care Provider [phone] Assessment No assessment recorded. Plan of Treatment [...] no bleeding. Not available 07/21/2020 20:57:06 09/08/2021 [id number] Patient counsele d to F/U immediately if [...] prepping for her visit (reviewing past records), [id number] with her and documenting. Not available 10/10/2021 13:42:19 Reason for Referral None Reported. Problems Name Problem SNOMED Code Status Onset Date Resolution Date Notes Provider Name and Address Organization Details Recorded Time Pile easily reducible 464224405 Active 2019 Tx #1: 0 1.2 x [...] 3 RA Tx #9: Nayely Combs MD [address] [place] [address],[address], [place], [address], [facility] [place] 2 13:36:27 External hemorrhoids 02110535 Active 2019 Nayely Combs MD [address] [place] [address],[address], [place], [address], [facility] [place] 0 22:24:16 History of polyp of colon 811354602 Active 2019 Nayely Combs MD [address] [place] [address],[address], [place], [address], [facility] [place] 0 22:26:29 Problem Notes None recorded. Procedures Surgical History Date Name Laterality Status Provider Name and Address Organization Details Recorded Time 09/08/20 IRC completed Nayely Combs MD [address] [place] [address],[address], [place], [address], [facility] [place] 10/10/2021 13:36:07 07/21/20 20 IRC completed Nayely Combs MD [address] [place] [address],[address], [place], [address], [facility] [place] 07/21/2020 20:54:51 04/15/20 IRC completed Nayely Combs MD [address] [place] [address],[address], [place], [address], [facility] [place] 04/15/2020 20:15:31 02/17/20 IRC completed Nayely Combs MD [address] [place] [address],[address], [place], [address], [facility] [place] 02/17/2020 13:31:47 12/02/19 IRC completed Nayely Combs MD [address] [place] [address],[address], [place], [address], [facility] [place] 12/02/2019 18:44:30 11/11/19 20 IRC completed Nayely Combs MD [address] [place] [address],[address], [place], [address] [place] 11/11/2019 18:10:47 10/28/19 IRC completed Nayely Combs MD [address] [place] [address],[address], [place], [address] [place] 10/[facility]/2019 18:22:55 10/21/19 IRC completed Nayely Combs MD [address] [place] [address],[address], [place], [address] [place] 10/21/2019 22:23:35 10/16/19 20 colonoscopy completed Nayely Combs MD [address] [place] [address],[address], [place], [address] [place] 10/21/2019 22:18:51 10/02/19 14 Date of Last Mammogram completed [facility] 10/21/2019 10:49:39 10/02/19 10 Date of Last Pap Smear completed Rahel Chou [facility] 10/21/2019 10:49:42 10/02/19 10 Thumb tendon transfer completed Nayely Combs MD [address] [place] [address],[address], [place], [address] [place] 10/21/2019 22:20:19 10/02/18 99 hammer toe operation completed Nayely Combs MD [address] [place] [address],[address], [place], [address], [facility] [place] 10/21/2019 22:20:13 10/02/18 87 Hysterectomy completed Nayely Combs MD [address] [facility],[address], [place], [address], [facility] [place] 10/21/2019 22:19:35 03/02/19 84 vaginal delivery of fetus completed Nayely Combs MD [address] [facility],[address], [place], [address], [facility] [place] 10/21/2019 22:21:13 10/02/18 75 tonsillectomy completed Nayely Combs MD [address] [facility],[address], [place], [address], [facility] [place] 10/21/2019 22:19:43 Imaging Results None recorded. Procedure Notes None recorded. Medical Equipment None Reported. Allergies Allergen ID Allergen Name Allergen Category Reaction Reaction Severity Criticality Documentation Date Start Date Code Code System Note Provider Name and Address Organization Details Recorded Time 2937 Xanax medicatio n respirato ry distress Not available Not available 10/21/2019 3 RxNorm Rahel Chou [facility] [place] 0 10:46:43 Medications Name Sig Start Date [...] Updated DateTime 12/02/2019 157.48 cm [facility] 12/02/2019 13:01:00 Date Recorded Body height Body temperature Provider N dar and Address Organization Details Last Updated DateTime 02/17/2020 157.48 cm 98.1 [degF] Ellen Boliv[facility] 02/17/2020 13:01:43 Date Recorded Body height Body temperature Provider N dar and Address Organization Details Last Updated DateTime 04/15/2020 157.48 cm 97.8 [degF] [facility] 04/15/2020 13:07:21 Date Recorded Body height Body temperature Provider N dar and Address Organization Details Last Updated DateTime 07/21/2020 157.48 cm 96.8 [degF] [facility] 07/21/2020 12:19:36 Social History Question Answer Notes LastModified by Organizat ion Details LastModified Time Tobacco Smoking Status Current Every Day Smoker Rahel Chou [facility] 10/21/2019 10:47:40 Do You Have An Advance Directive? No [email or web address] Information not available 10/21/2019 Alcohol Use Yes [email or web address] Information not available 10/21/2019 Alcohol Amount Occasional [email or web address] Information not available 10/21/2019 Caffeine Use Yes [email or web address] Informatio n not available 10/21/2019 Caffeine Type Coffee [email or web address] Informati on not available 10/21/2019 Caffeine Amount 3-4c/day [email or web address] Information not available 10/21/2019 Illicit Drug Use No [email or web address] Information not available 10/21/2019 What Was The Date Of Your Most Recent Tobacco Screening? 09/08/2021 Information not available 10/10/2021 How Much Tobacco Do You Smoke? 0.5 PPD [email or web address] Information not available 10/21/2019 How Many Years Have You Smoked Tobacco? 40 [email or web address] Information not available 10/21/2019 Sex: Female Functional Status Question Answer Note LastModified by Organizat ion Details LastModified Time Do you or have you ever used smokeless tobacco? 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 Never used electronic cigarettes [email or web address] Information not available 10/21/2019 Mental Status None recorded. Family History Relationship Description Onset Age of this Age Resolved Age Notes LastModified by Organization Details LastModified Time Father Coronary arterioscler osis 60 64 [email or web address] Not available 10:47:19 Mother Diabetes mellitus 78 82 [email or web address] Not available 10:47:32 Medical History Condition Response [...] Nayely Combs MD Main Office [address] [address] 10/21/2019 10:37:02 10/21/2019 12:20:39 Pile easily reducible 083245600 K64.1 Stage 2 - 3 internal hemorrhoid [...] of water to maintain daily and soft (Windham Scale type 4) BM's. I advised she should limit the amount of Excedrin that she takes to minimize the (already very low) risk of having bleeding from the treatment. She declined a surgical consult today. External hemorrhoids 239 [address] K64.4 These will improve with IRC. She [...] a BM. History of polyp of colon 413475618 Z86.010 This was on her 1st colonoscop y done 5 years ago. Her recent scope was clean (no polyps). I advised she needs to find out when she is due for a repeat (it will probably be 7 - 10 years). [id number] Nayely Combs MD Main Office [address] [facility] [address] [place] [address] 10/28/2019 13:12:01 10/28/2019 13:53:30 Pile easily reducible 483848113 K64.1 Stage 2 - 3 internal hemorrhoid s: She is doing well with infrared coagulatio n. Her 2nd treatment was done today on the LL. She of course needs to continue with her high fiber diet and drinking plenty of water to maintain daily and soft (Windham Scale type 4) BM's. She knows she should limit the amount of Excedrin that she takes to minimize the (already very low) risk of having bleeding from the treatment. External hemorrhoids 239 00879 K64.4 These are improving with IRC. She [...] [id number] Nayely Combs MD Main Office [address] [address] 11/11/2019 12:01:32 11/11/2019 12:55:17 Pile easily reducible 514950621 K64.1 Stage 2 - 3 internal hemorrhoid s: She is doing well with infrared coagulatio n. Her 3rd treatment was done today on the RA. She of course needs to continue with her high fiber diet and drinking plenty of water to maintain daily and soft (Windham Scale type 4) BM's. External hemorrhoids 239 36593 K64.4 These have improved with IRC. She [...] a BM. History of polyp of colon 866470562 Z86.010 This was on her 1st colonoscop y done 5 years ago. Her recent scope was clean (no polyps). I reminded her again that she needs to find out when she is due for a repeat (it will probably be 7 - 10 years). [id number] Nayely Combs MD Main Office [address] [address] 12/02/2019 12:59:39 12/02/2019 13:38:03 Pile easily reducible 080597088 K64.1 Stage 2 - 3 internal hemorrhoid s: She is doing well with infrared coagulatio n. Her 4th treatment was done today on the RP. She of course needs to continue with her high fiber diet and drinking plenty of water to maintain daily and soft (Windham Scale type 4) BM's. External hemorrhoids 239 [address]39 K64.4 These have improved with IRC. She [...] Nayely Combs MD Main Office [address] [facility] [place] [address] 02/17/2020 12:57:31 02/17/2020 13:24:21 Pile easily reducible 300831512 K64.1 Stage 2 - 3 internal hemorrhoid s: She is doing well with infrared coagulatio n. Her 5th treatment was done today on her LL and RA internal hemorrhoid s. She of course needs to continue with her high fiber diet and drinking plenty of water to maintain daily and soft (Windham Scale type 4) BM's. External hemorrhoids 239 05659 K64.4 These have improved with IRC. She [...] Nayely Combs MD Main Office [address] [facility] [place] [address] 04/15/2020 13:05:44 04/15/2020 13:36:41 Pile easily reducible 653392451 K64.1 Stage 2 - 3 internal hemorrhoid s: She is doing well with infrared coagulatio n. Her 6th treatment was done today on all three of her internal hemorrhoid s. She of course needs to continue with her high fiber diet and drinking plenty of water to maintain daily and soft (Windham Scale type 4) BM's. External hemorrhoids 239 15379 K64.4 These have improved with IRC. She [...] MD Main Office [address] [facility] [address] 07/21/2020 12:18:44 07/21/2020 13:04:08 Pile easily reducible 714402204 K64.1 Stage 2 - 3 internal hemorrhoid [...] of water to maintain daily and soft (Windham Scale type 4) BM's. External hemorrhoids 239 78291 K64.4 These have improved with IRC. She understand s the only way to directly treat external hemorrhoid s/skin tags would be with a surgical excision. She does not wish to pursue this and declined a surgical referral. She should consistent ly use the flushable wipes if she cannot take a shower after a BM. History of polyp of colon 613137937 Z86.010 This was on her 1st colonoscop y done 5 years ago. Her recent scope was clean (no polyps). I reminded her again that she needs to find out when she is due for a repeat (it will probably be 7 - 10 years). [id number] Nayely Combs MD Main Office [address] [address] 09/08/2021 12:09:35 09/08/2021 13:07:58 Pile easily reducible 659841908 K64.1 Stage 2 internal hemorrhoid s: She [...] of water to maintain daily and soft (Windham Scale type 4) BM's. I discussed with her again that even though her internal hemorrhoid s do not prolapse, they are rather large. She will not get completely better with IRC and will need to follow up on a yearly basis even if she does get completely better. She declined a surgical consult. External hemorrhoids 239 22837 K64.4 These will improve with IRC. She [...] a BM. History of polyp of colon 518725349 Z86.010 This was on her 1st colonoscop [...] Beltre Member ID Guarantor Name 10/10/2021 1 [facility] [id number] [id number] Byron Phillip Notes Date Note Type Note [...] dietary fiber. Nayely Combs MD [address] [facility],[address], [place], [address], [facility] 12/02/2019 18:46:27 02/17/2020 text/html [...] just her dietary fiber. Nayely Combs MD [address] [place] [address],[address], [place], [address], [facility] [place] 02/17/2020 13:34:16 04/15/2020 text/html She had no [...] improvement. Her BM's remain daily and soft (Windham Scale type 4) with just her dietary fiber. Nayely Combs MD [address] [place] [address],[address], [place], [address], [facility] [place] 04/15/2020 20:18:19 07/21/2020 text/html She had no [...] Her BM's are consistently daily and soft (Windham Scale type 4) with just her dietary fiber. Nayely Combs MD [address] [facility],[address], [place], [address], [facility] 07/21/2020 21:00:27 [...] Previous Hemorrhoid Treatment: She has had the [facility] treatments here. Previous Lower GI Endoscopy: She [...] has had long standing daily and soft (Windham Scale type 4) BM's. She tries to [...] with IRC. Nayely Combs MD [address] [facility],[address], [place], [address], [facility] 11/08/2021 11:56:22 OBGyn Episode No OBEpisode recorded.
[2025-08-15 09:48] VITALS: BP 123/80; PULSE 87; RESP 20; TEMP 36.5; O2SAT 98; BMI 27.7
--- NOTE | 2025-08-15 09:54 | WPDANESEPPF ---
Anes - Initial Pre Proc Eval Procedure: Operation Date: 08/15/25 11:00 Proposed Procedures p Screening Colonoscopy - Fede Beasley MD Date/Time: 08/15/25 09:54 Surgeon: Fede Beasley MD Pre Op Diagnosis: Personal history of colon polyps, unspecified Patient Data Age: 69 Gender: F Height: 1.52 m Weight: 64.4 kg Last Vital Signs Temp 36.5 C 08/15/25 09:48 Pulse 87 08/15/25 09:48 Resp 20 08/15/25 09:48 BP 123/80 08/15/25 09:48 Pulse Ox 98 08/15/25 09:48 O2 Del Method Room Air 08/15/25 09:48 Allergies Allergy/AdvReac Type Severity Reaction Status Date / Time alprazolam AdvReac Intermediate shortness Verified 08/15/25 09:46 of breath Home Medications ?Medication ?Instructions ?Recorded ?Confirmed ?Type valacyclovir 1 gram tablet 2,000 mg (2 x 1 gram) PO Q12H PRN 08/11/23 08/15/25 Rx (Valtrex) cold sores #30 tabs diazepam 5 mg tablet 5 mg PO BID PRN anxiety #60 tabs 08/22/24 08/04/25 Rx varenicline tartrate 1 mg tablet 1 mg PO BID #180 tabs 06/17/25 08/15/25 Rx fluticasone propionate 50 2 spray intranasal DAILY chronic 06/26/25 08/15/25 Rx mcg/actuation nasal seasonal allergic rhinitis #48 mL spray,suspension (Flonase Allergy Relief) ibandronate 150 mg tablet 150 mg PO MONTHLY #1 tablet 06/27/25 08/04/25 Rx naproxen 500 mg tablet 500 mg PO BID PRN pain #60 tabs 07/01/25 08/15/25 Rx eszopiclone 2 mg tablet (Lunesta) 2 mg PO QHS #1 tablet 07/02/25 08/04/25 Rx atorvastatin 10 mg tablet 10 mg PO DAILY #90 tabs 07/20/25 08/15/25 Rx Patient hx anesthesia problems: none Family hx anesthesia problems: none Results Review: All pre-operative results and documents have been reviewed as part of the pre-operative evaluation. [facility] Past Medical History Medical History Stopped smoking between 3 and 6 months ago (~12/30/24) Hemorrhoids with prolapsed tissue that cannot be manually replaced Adenomatous colon polyp [place] Surgical History Surgical History H/O hemorrhoidectomy 04/29/24 Internal and external hemorrhoidectomy x2 columns History of bunionectomy H/O: hysterectomy Family History Family History Mother Diabetes mellitus Other Family history of coronary artery disease Family history of malignant neoplasm of breast in first degree relative Social History Social History Smoking packs per day: 1 Smoking cigarettes per day: 20.0 Years smoked: 50 Smoking pack-years: 50.00 Smoking status: Former smoker (stopped 11/29/24) Tobacco type: cigarettes Second hand tobacco smoke exposure: No Additional smoking assessment comments: TRYING TO QUIT-SMOKING 4-5/DAY Alcohol intake: current Drinks per week: 8 Alcohol use details: 3 beers, twice weekly Substance use: current Substance use type: marijuana Other substance usage details: smokes marijuana, edibles-seldom, maybe once every 2 weeks. Last use: 08/03/25 Do You Feel Safe in your Home?: Yes Lack of Transportation: No Lack of Food: Never True Current Housing: I Have Housing Concerned About Future Housing: No Difficulty Paying Gas/Electric Bills: No Difficulty Paying for Meds: No Currently Unemployed: No Education: Trade/Vocational Certificate Difficulty w/ Childcare or Family Care: No Living arrangements: with family Additional living arrangements comments: HUSB Gender identity (if verbalized by the patient): Female Sexual Orientation (if Verbalized by the Patient): Straight or Heterosexual Spiritual care concerns: No Agree to blood products: Yes Anes - Eval Final PreProcedure Day of Procedure 08/15/25 09:54 Patient weight: overweight Heart: regular rate and rhythm Lungs: clear to auscultation Airway: Mallampati scale class II Neurological: alert and oriented Last oral intake: >/= 8 hours ASA classification: III Emergent: no Anesthetic plan: proceed Anesthesia type and monitoring: general GIVS and standard monitoring Results Review: All pre-operative results and documents have been reviewed as part of the pre-operative evaluation. Informed Consent: The patient's anesthetic plan and its attendant risks and benefits were discussed with the patient/family/POA. Questions were solicited and answers provided to the satisfaction of the patient/family/POA.
[2025-08-15] MEDS: LACTATED RINGERS 1,000 ML 150 ML IV CONT (09:56)
--- NOTE | 2025-08-15 10:02 | P.HP_ITS ---
History of Present Illness History of Present Illness Consent: Risks, benefits, and alternatives have been discussed and questions answered. Patient agrees to proceed with procedure. Chief complaint: Personal history of colon polyps, unspecified Narrative: Alanis Phillip is a 69 year old female with last colonoscopy 2019, h/o polyp Review of Systems Review of Systems: All systems reviewed & are unremarkable except as noted in HPI and below PMFSH Past Medical History Medical History Stopped smoking between 3 and 6 months ago (~12/30/24) Hemorrhoids with prolapsed tissue that cannot be manually replaced [facility] Surgical History H/O hemorrhoidectomy 04/29/24 Internal and external hemorrhoidectomy x2 columns History of bunionectomy H/O: hysterectomy Family History Family History Mother Diabetes mellitus Other Family history of coronary artery disease Family history of malignant neoplasm of breast in first degree relative Social History Social History Smoking packs per day: 1 Smoking cigarettes per day: 20.0 Years smoked: 50 Smoking pack-years: 50.00 Smoking status: Former smoker (stopped 11/29/24) Tobacco type: cigarettes Second hand tobacco smoke exposure: No Additional smoking assessment comments: TRYING TO QUIT-SMOKING 4-5/DAY Alcohol intake: current Drinks per week: 8 Alcohol use details: 3 beers, twice weekly Substance use: current Substance use type: marijuana Other substance usage details: smokes marijuana, edibles-seldom, maybe once every 2 weeks. Last use: 08/03/25 Do You Feel Safe in your Home?: Yes Lack of Transportation: No Lack of Food: Never True Current Housing: I Have Housing Concerned About Future Housing: No Difficulty Paying Gas/Electric Bills: No Difficulty Paying for Meds: No Currently Unemployed: No Education: Trade/Vocational Certificate Difficulty w/ Childcare or Family Care: No Living arrangements: with family Additional living arrangements comments: HUSB Gender identity (if verbalized by the patient): Female Sexual Orientation (if Verbalized by the Patient): Straight or Heterosexual Spiritual care concerns: No Agree to blood products: Yes Meds Home Medications and Allergies Home Medications ?Medication ?Instructions ?Recorded ?Confirmed ?Type valacyclovir 1 gram tablet 2,000 mg (2 x 1 gram) PO Q1 2H PRN 08/11/23 08/15/25 Rx (Valtrex) cold sores #30 tabs diazepam 5 mg tablet 5 mg PO BID PRN anxiety #60 tabs 08/22/24 08/04/25 Rx varenicline tartrate 1 mg tablet 1 mg PO BID #180 tabs 06/17/25 08/15/25 Rx fluticasone propionate 50 2 spray intranasal DAILY ch ronic 06/26/25 08/15/25 Rx mcg/actuation nasal seasonal allergic rhinitis # 48 mL spray,suspension (Flonase Allergy Relief) ibandronate 150 mg tablet 150 mg PO MONTHLY #1 tablet 06/27/25 08/04/25 Rx naproxen 500 mg tablet 500 mg PO BID PRN pain #60 t abs 07/01/25 08/15/25 Rx eszopiclone 2 mg tablet (Lunesta) 2 mg PO QHS #1 table t 07/02/25 08/04/25 Rx atorvastatin 10 mg tablet 10 mg PO DAILY #90 tabs 07/0208/15/25 Rx Allergies Allergy/AdvReac Type Severity Reaction Status Date / Time alprazolam AdvReac Intermediate shortness Verified 08/15/25 09:46 of breath Vital Signs Vital Signs - 24 hr 08/15/25 09:48 Temperature 97.7 F Pulse Rate 87 Respiratory Rate 20 Blood Pressure 123/80 Pulse Oximetry 98 Oxygen Delivery Room Air Exam Const: General: comfortable and no acute distress HENMT: Face/Nose/Sinus: Normal nares present Eyes: General: appearance normal, both eyes and all related structures Neck: Neck: no JVD Resp: Auscultation: clear to auscultation bilaterally Cardio: Rate: regular rate Rhythm: regular rhythm GI: Inspection: non-distended GI Palp: Yes Soft to palpation Skin: General skin exam: normal color Extrem: General: normal to inspection Psych: Mental Status: mental status grossly normal Assessment and Plan Assessment and plan (1) Adenomatous colon polyp: Qualifiers: Colon location: unspecified part of colon Qualified Code(s): D12.6 - Benign neoplasm of colon, unspecified Code(s): D12.6 - Benign neoplasm of colon, unspecified Status: Acute Assessment and Plan: colonoscopy
--- NOTE | 2025-08-15 10:13 | S_PTH ---
PATIENT: Alanis Phillip LOC: [facility] Byers#:[id number] AGE/SX: 69/F ROOM: RE08/15/[address]: Fede Beasley MD : 1955 BED: DIS: 08/15/2025 SPEC #: [id number] RECD: 08/15/25 10:54 STATUS: MACO REQ #: [id number] PETROS: 08/15/25 10:[address]: Fede Beasley DEPT: [facility] Surgical RECD BY: Eri Raymundo ENTERED: 08/15/25 10:54 SP TYPE: Surgical OTHR DR: Facundo Wayne MD Tissues: A - Colon Polypectomy Procedures: Hematoxylin and Eosin Stain Gross and Microscopic Level 4
[2025-08-15 10:14] VITALS: BP 107/62; PULSE 81; RESP 16; O2SAT 95
[2025-08-15 10:24] VITALS: BP 122/74; PULSE 71; RESP 20; O2SAT 97
[2025-08-15 10:34] VITALS: BP 116/64; PULSE 76; RESP 20; O2SAT 100
== END 2025-08-15 10:43 | disposition home or self-care (01) ==
PROVIDERS: PCP Family Medicine Adolescent Medicine; Referring Provider Internal Medicine Gastroenterology; Visit Provider Internal Medicine Gastroenterology
PROC: 0DJD8ZZ Inspection of Lower Intestinal Tract, Via Natural or Artificial Opening Endoscopic (ICD-10-PCS; CPT 45378; principal; 2025-08-15 11:00)
DX: Z12.11 Encounter for screening for malignant neoplasm of colon (principal); D12.5 Benign neoplasm of sigmoid colon; K64.8 Other hemorrhoids; K57.30 Diverticulosis of large intestine without perforation or abscess without bleeding; F12.90 Cannabis use, unspecified, uncomplicated; Z79.83 Long term (current) use of bisphosphonates; Z79.1 Long term (current) use of non-steroidal anti-inflammatories (NSAID); Z98.890 Other specified postprocedural states; Z87.891 Personal history of nicotine dependence; Z80.3 Family history of malignant neoplasm of breast; Z82.49 Family history of ischemic heart disease and other diseases of the circulatory system
CPT/HCPCS: 45380; 88305; J2704; J7120